=== PATIENT | female | born 1995 | race Caucasian/White ===

== ENCOUNTER 2017-01-14 08:33 | Outpatient (CLI) | payer MEDICAID ==
[~2017-01-14] VITALS: Ht 154.9 cm; Wt 66.0 kg
[~2017-01-14 08:33] MED LIST: PRENAT PO
[2017-01-14 08:48] VITALS: Ht 154.9 cm; Wt 66.0 kg
[2017-01-14 09:20] LABS: ADD UMIC YES; URINE BILIRUBIN (Dip) NEGATIVE (NEGATIVE); URINE BLOOD (Dip) 1+ (NEGATIVE); URINE COLOR LT. YELLOW (YELLOW); URINE GLUCOSE (Dip) NEGATIVE (NEGATIVE); URINE KETONES (Dip) NEGATIVE (NEGATIVE); URINE LEUKOCYTE ESTERASE (Dip) 1+ (NEGATIVE); URINE NITRITE (Dip) POSITIVE (NEGATIVE); URINE TOTAL PROTEIN (Dip) 1+ (NEGATIVE); URINE UROBILINOGEN (Dip) 0.2 E.U./dL (0.1-1.0)
[2017-01-14] MEDS ORDERED: NITR-58 PO (09:34)
--- NOTE | 2017-01-14 09:40 | HP ---
Date/Time of Note Date/Time of Note DATE: 01/14/17 TIME: 09:37 OB - History Hx of Present Free Text/Dictation OB Triage Pt is a 21yo at 22+2 presenting with 4d of painful urination with blood tinge on toilet paper after voiding. Denies blood stains on underwear. Has never felt movement yet this . Denies abdominal cramping or LOF. Sees OB in [place]. Had anatomy U/S 2wks ago which pt reports was wnl. Estimated Due Date: May 18, 2017 : 2 Para: 1 OB Admission Exam Vital Signs Vital Signs 98 112/66 77 18 Physical Exam Abdomen: WNL Heart Rate: 150's OB Assessment/Plan Other Assessment: UTI FWB reassuring Other plan: Rx Macrobid 100mg BID x7d Recommended pt f/up with primary OB in 2wks for a YI urine culture Encourage increase in PO hydration SAB precautions reviewed as well as infection precautions Pt demonstrated understanding Appropriate for d/c home NAMRATA BRUNO MD Jan 14, 2017 09:40
[2017-01-14 09:43] LABS: BACTERIA,URINE MANY
--- NOTE | 2017-01-14 09:46 | TRIAGE ---
OB Triage Datetime Report Generated by CPN: 01/14/2017 09:46 Datetime: 01/14/2017 09:50 Stage of : OB Triage Datetime: 01/14/2017 08:56 Labor Evaluation Frequency: NONE Monitor Mode: External Pattern: Normal: <= 5 Contractions in 10 Minutes Datetime: 01/14/2017 08:46 Heart Rate FHR Baseline Rate: 150 Comments: DR ROBNSON INFORMED.ORDERS RE CEIVED Datetime: 01/14/2017 08:43 Assessment Type: Triage Maternal Assessment Level of Consciousness: Fully Conscious DTR's/Clonus: DTRs 2+; No Clonus Headache: Denies Blurred Vision: No Respiratory Effort: Unlabored; Regular Rhythm; Equal Expansion Breath Sounds, Left: Clear and Equal Breath Sounds, Right: Clear and Equal Nausea/Vomiting: Denies RUQ Epigastric Pain: Denies Lower Extremities Edema: None Degree: None Upper Extremities Edema: None Degree: None Facial Edema: None Fall Risk Assessment History of Falling: (0) No Secondary Diagnosis: (0) No Ambulatory Aid: (0) Bedrest/Nurse Assist IV Therapy: (0) No Gait: (0) Normal/Bedrest/Immobile Mental Status: (0) Oriented to Own Ability Fall Score: 0 Fall Risk Score Definition: No Risk: No action required Datetime: 01/14/2017 08:41 EGA: 22.2 Datetime: 01/14/2017 08:40 Time of Arrival: 01/14/2017 08:40 Arrived By: Wheelchair Arrived From: Home Chief Complaint: PAIN ON URINATION Movement: Present Contractions: Denies/Absent Rupture of Membranes: Denies Vaginal Bleeding: None Vaginal Discharge: Denies Recent Sexual Intercouse: Denies Abdominal Trauma: Not Applicable Patient Complaints: Other Time Provider Notified: 01/14/2017 08:50 Provider Notified: DAMION Initial Plan: MATTHEW
== END 2017-01-14 09:45 | disposition home or self-care (01) ==
LOC: OBT 08:33 → L-D 08:34 → OBT 09:45
PROVIDERS: ATTEND Obstetrics & Gynecology
DX: O23.42 Unspecified infection of urinary tract in pregnancy, second trimester (principal); Z3A.22 22 weeks gestation of pregnancy
CPT/HCPCS: 81001; Z7500; 81003; G0463

== ENCOUNTER 2017-01-29 04:38 | Inpatient (IN) | payer MEDICAID ==
[~2017-01-29] VITALS: Ht 152.4 cm; Wt 67.2 kg
[~2017-01-29 04:38] MED LIST changes: +NITR-58 PO
[2017-01-29 05:04] VITALS: Ht 152.4 cm; Wt 67.2 kg
[2017-01-29 05:42] LABS: ADD UMIC YES; URINE BILIRUBIN (Dip) NEGATIVE (NEGATIVE); URINE BLOOD (Dip) 1+ (NEGATIVE); URINE COLOR LT. YELLOW (YELLOW); URINE GLUCOSE (Dip) NEGATIVE (NEGATIVE); URINE KETONES (Dip) NEGATIVE (NEGATIVE); URINE LEUKOCYTE ESTERASE (Dip) 2+ (NEGATIVE); URINE NITRITE (Dip) POSITIVE (NEGATIVE); URINE TOTAL PROTEIN (Dip) 2+ (NEGATIVE); URINE UROBILINOGEN (Dip) 0.2 E.U./dL (0.1-1.0)
[2017-01-29 05:59] LABS: BACTERIA,URINE MANY; SQUAMOUS EPITHELIAL CELL,UR MODERATE
[2017-01-29] MEDS ORDERED: SOD CHLORIDE 0.9% 1,000 ML IV ONE (06:30)
[2017-01-29] MEDS ORDERED: CEFTRIAXONE 1 GM/50 ML (PMX) 50 ML IVPB ONE (06:30)
[2017-01-29 06:45] LABS: ADD SCAN DIFF NO
[2017-01-29 06:57] LABS: BASOPHILS % 0.2 % (0.0-2.0); EOSINOPHILS # 0.2 10^3/ul (0.0-0.5); HEMOGLOBIN 11.4 g/dl (12.0-16.0); LYMPHOCYTES # 1.8 10^3/ul (0.8-2.9); LYMPHOCYTES % 19.2 % (18.0-55.0); MEAN CORPUSCULAR HEMOGLOBIN 28.4 pg (29.0-33.0); MEAN CORPUSCULAR HGB CONC 32.6 g/dl (32.0-37.0); MEAN CORPUSCULAR VOLUME 87.1 fl (72.0-104.0); MONOCYTE # 0.6 10^3/ul (0.3-0.9); MONOCYTES % 5.8 % (0.0-13.0); NEUTROPHIL # 6.9 10^3/ul (1.6-7.5); NEUTROPHILS % 72.5 % (30.0-74.0); PLATELET COUNT 279 10^3/UL (140-415); RED BLOOD COUNT 4.02 10^6/ul (4.20-5.40); RED CELL DISTRIBUTION WIDTH 13.9 % (11.5-14.5); WHITE BLOOD COUNT 9.5 10^3/ul (4.8-10.8)
--- NOTE | 2017-01-29 06:57 | HP ---
Date/Time of Note Date/Time of Note DATE: 01/29/17 TIME: 06:35 OB - History Hx of Present Free Text/Dictation Patient is at 25 weeks gestation who was treated with Macrobid x 7 days for UTI and the last dose was taken on wed 01/26/17 She presents with lower abdominal pain radiating to her back, no fever, no nausea/vomiting She reports positive movement, no leaking fluid, no vaginal bleeding, no contractions Past Family/Social History * Past Medical, Surgical, Family and Obstetric Histories reviewed from chart. OB Admission Exam Physical Exam HEENT: WNL Heart: Rhythm Normal Lungs: Clear Abdomen: Abnormal (positive CVA tenderness) Extremities: Normal Cervical Dilatation: None Accelerations: Accelerations Present Decelerations: No Decelerations Last 72 hourBlood Glucose UA positive for greater than 200 WBC OB Assessment/Plan Reason for admission: other Other Assessment: UTI with worsening pain and back pain IVF, labs, urine culture HAM Sauer IV Jan 29, 2017 06:46
[2017-01-29 07:02] LABS: ALBUMIN 3.3 g/dl (3.3-4.9)
[2017-01-29 07:03] LABS: POTASSIUM 3.7 mmol/L (3.5-5.1)
[2017-01-29 07:05] LABS: ALBUMIN/GLOBULIN RATIO 1.1; CREATININE 0.38 mg/dl (0.44-1.00); TOTAL PROTEIN 6.3 g/dl (6.1-8.1)
[2017-01-29 07:06] LABS: CALCIUM 8.1 mg/dl (8.4-10.2)
[2017-01-29] MEDS ORDERED: DEXTROSE 5%-LR 1,000 ML IV SCH (11:09)
[2017-01-29] MEDS: SOD CHLORIDE 0.45% 1,000 ML IV SCH ×2 (15:40→23:46)
[2017-01-30] MEDS ORDERED: CEFTRIAXONE 1 GM/50 ML (PMX) 50 ML IV SCH (06:00)
[2017-01-30] MEDS: SOD CHLORIDE 0.45% 1,000 ML IV SCH ×2 (07:00→09:19)
[2017-01-30] MEDS ORDERED: MULTIVIT/MIN/FOLATE/IRON/PREN TAB PO SCH (09:00)
[2017-01-30] MEDS ORDERED: FERROUS SULFATE (EC) 325 MG TAB PO SCH (09:00)
--- NOTE | 2017-01-30 15:32 | PD.PPDC ---
NETWORK OPERATIONS LEAD Discharge Instruction Condition Patient Condition: Good Diet Diet: Resume Regular Diet Activity/Restrictions Activity: Normal Activity Follow-up Follow-up with Physician: 2, Day/Days Return to clinic for NETWORK ENGINEER Instructions: Fever greater than 101 [place] STEPAN CHAPMAN MD Jan 30, 2017 15:31
--- NOTE | 2017-01-30 15:38 | DS ---
Date/Time of Note Date/Time of Note DATE: 01/30/17 TIME: 15:35 Obstetrical Discharge Record Final Diagnosis Final Diagnosis: not delivered Other Final Diagnosis Pyelonephritis. Complications Infection (Pyelonephritis.) Augmentation: No Induction: No Rupture of Membranes: No Condition on Discharge Physical Assessment Last Vitals: T= 98.3 BP 89/54 Voiding: Yes Bowel Movement: Yes Breast: Soft, non-tender Fundus: Other (Non-tender, gravid.) Abdomen and Incision: No CVAT bilaterally. Calf Tenderness: No Patient Condition: Good STEPAN CHAPMAN MD Jan 30, 2017 15:38
== END 2017-01-30 16:31 | disposition home or self-care (01) | DRG 778 ==
LOC: OBT 04:38 → L-D 04:43 → OBG 11:00 → OBT 11:00
PROVIDERS: ADMIT Obstetrics & Gynecology Gynecology; ATTEND Obstetrics & Gynecology Gynecology
DX: O60.02 Preterm labor without delivery, second trimester (principal); O23.42 Unspecified infection of urinary tract in pregnancy, second trimester; Z3A.25 25 weeks gestation of pregnancy
CPT/HCPCS: 36415; 80053; 81001; 81003; 85025; 87086; 96360; 96361; 96368; G0463; J0696; J7030; J7121

== ENCOUNTER 2017-03-01 17:55 | Inpatient (IN) | payer MEDICAID ==
[~2017-03-01] VITALS: Ht 152.4 cm; Wt 70.3 kg
[~2017-03-01 17:55] MED LIST changes: -NITR-58 PO
[2017-03-01 19:12] VITALS: Ht 152.4 cm; Wt 70.3 kg
[2017-03-01 19:14] VITALS: BP 111/70; PULSE 115; RESP 18
[2017-03-01] MEDS ORDERED: LACTATED RINGER'S 1,000 ML IV ONE (19:30)
[2017-03-01] MEDS: LACTATED RINGER'S 1,000 ML IV SCH (19:45)
[2017-03-01 19:49] LABS: ADD UMIC YES; URINE BILIRUBIN (Dip) NEGATIVE (NEGATIVE); URINE BLOOD (Dip) 2+ (NEGATIVE); URINE COLOR LT. YELLOW (YELLOW); URINE GLUCOSE (Dip) NEGATIVE (NEGATIVE); URINE KETONES (Dip) NEGATIVE (NEGATIVE); URINE LEUKOCYTE ESTERASE (Dip) TRACE (NEGATIVE); URINE NITRITE (Dip) POSITIVE (NEGATIVE); URINE TOTAL PROTEIN (Dip) NEGATIVE (NEGATIVE); URINE UROBILINOGEN (Dip) 2.0 E.U./dL (0.1-1.0)
[2017-03-01] MEDS ORDERED: ACETAMINOPHEN 500 MG TAB PO STA (19:56)
[2017-03-01] MEDS ORDERED: ACETAMINOPHEN 650 MG SUPP PR PRN (20:00)
[2017-03-01 20:04] LABS: ADD SCAN DIFF NO
--- NOTE | 2017-03-01 20:10 | RADRPT ---
PROCEDURE: OB ultrasound for biophysical profile CLINICAL INDICATION: Biophysical profile. . TECHNIQUE: Multiple sonographic images of the pelvis were obtained. Transabdominal view of the gr avid uterus are available for review. COMPARISON: OB ultrasound 07/31/2015 FINDINGS: Single intrauterine gestation. Presentation: Cephalic. breathing movement = 2/2 tone = 2/2 motion = 2/2 ELIZABETH = 2/2 Longest vertical fluid pocket 5.9 cm. heart rate: 161 beats per minute IMPRESSION: Single intrauterine gestation. Biophysical profile 06/21 RPTAT: AADD .Davin Zarco MD, MD Date Time Electronically viewed and signed by .Davin Zarco MD, MD on 03/01/2017 20:10 .B/
[2017-03-01 20:25] LABS: BASOPHILS % 0.1 % (0.0-2.0); EOSINOPHILS # 0.1 10^3/ul (0.0-0.5); EOSINOPHILS % 1.1 % (0.0-7.0); HEMATOCRIT 35.9 % (37.0-47.0); HEMOGLOBIN 11.2 g/dl (12.0-16.0); LYMPHOCYTES % 11.6 % (18.0-55.0); MEAN CORPUSCULAR HEMOGLOBIN 27.5 pg (29.0-33.0); MEAN CORPUSCULAR HGB CONC 31.2 g/dl (32.0-37.0); MEAN CORPUSCULAR VOLUME 88.2 fl (72.0-104.0); MEAN PLATELET VOLUME 10.3 fl (7.4-10.4); MONOCYTE # 0.6 10^3/ul (0.3-0.9); MONOCYTES % 7.2 % (0.0-13.0); NEUTROPHIL # 6.8 10^3/ul (1.6-7.5); NEUTROPHILS % 79.6 % (30.0-74.0); PLATELET COUNT 271 10^3/UL (140-415); RED BLOOD COUNT 4.07 10^6/ul (4.20-5.40); WHITE BLOOD COUNT 8.6 10^3/ul (4.8-10.8)
[2017-03-01] MEDS: SOD CHLORIDE 0.9% 1,000 ML IV PRN (20:56)
[2017-03-01] MEDS: CEFTRIAXONE 1 GM/50 ML (PMX) 50 ML IVPB SCH (21:01)
[2017-03-01 21:08] LABS: BACTERIA,URINE MANY; SQUAMOUS EPITHELIAL CELL,UR MODERATE
--- NOTE | 2017-03-01 21:31 | TRIAGE ---
OB Triage Datetime Report Generated by CPN: 03/01/2017 21:30 Datetime: 03/01/2017 21:12 Temperature Route: Oral Datetime: 03/01/2017 20:17 Monitor Mode: Palpation Datetime: 03/01/2017 20:07 Monitor Mode: Palpation Datetime: 03/01/2017 19:35 Time of Arrival: 03/01/2017 17:56 EGA: 28.6 Arrived By: Wheelchair Arrived From: Emergency Dept Chief Complaint: Pyelonephritis re-evaluation Movement: Present Contractions: Denies/Absent Rupture of Membranes: Denies Vaginal Bleeding: None Vaginal Discharge: Denies Recent Sexual Intercouse: Denies Abdominal Trauma: Not Applicable Patient Complaints: Back Pain; Other Time Provider Notified: 03/01/2017 18:22 Provider Notified: [facility] Initial Plan: NST, BPP/ELIZABETH, Renal US, UA + urine culture, IV hydration, CBC Datetime: 03/01/2017 19:32 Time Provider Notified: 03/01/2017 19:32 Datetime: 03/01/2017 19:13 Stage of : OB Triage Assessment Type: Triage Maternal Assessment Level of Consciousness: Fully Conscious DTR's/Clonus: DTRs 2+; No Clonus Headache: Denies Blurred Vision: No Respiratory Effort: Unlabored; Regular Rhythm; Equal Expansion Breath Sounds, Left: Clear and Equal Breath Sounds, Right: Clear and Equal Nausea/Vomiting: Denies RUQ Epigastric Pain: Denies Lower Extremities Edema: None Degree: None Upper Extremities Edema: None Degree: None Facial Edema: None Temperature Route: Oral Fall Risk Assessment History of Falling: (0) No Secondary Diagnosis: (0) No Ambulatory Aid: (0) Bedrest/Nurse Assist IV Therapy: (0) No Gait: (0) Normal/Bedrest/Immobile Mental Status: (0) Oriented to Own Ability Fall Score: 0 Fall Risk Score Definition: No Risk: No action required Labor Evaluation Frequency: IRREGULAR Monitor Mode: External Resting Tone Amo: Relaxed Heart Rate FHR Baseline Rate: 165 Monitor Mode: External US FHR Baseline Changes: Tachycardia Variability: Moderate 6-25 bpm Pain Assessment Pain Scale: 5 Pain Presence: Intermittent Pain Type: Cramping Pain Location: Right Flank; Left Flank Pain Relief Measures: Comfort Measures Datetime: 03/01/2017 18:30 Monitor Mode: External Resting Tone Amo: Relaxed Heart Rate FHR Baseline Rate: 165 Monitor Mode: External US FHR Baseline Changes: No Baseline Change Variability: Moderate 6-25 bpm Accelerations: 15X15 Decelerations: None Category: Category I Pain Assessment Pain Scale: 5 Pain Presence: Intermittent Pain Type: Ache Pain Location: Back Pain Goal: 0 Pain Relief Measures: Comfort Measures Datetime: 03/01/2017 18:11 Stage of : OB Triage Datetime: 01/30/2017 16:00 Temperature Route: Oral Monitor Mode: External Pain Assessment Pain Scale: 0 Pain Presence: None/Denies Pain Goal: 0 Datetime: 01/30/2017 14:00 Pain Assessment Pain Scale: 0 Pain Presence: None/Denies Pain Goal: 0 Datetime: 01/30/2017 13:00 Pain Assessment Pain Scale: 0 Pain Goal: 0 Pain Assessment Comments: PT HAVING LUNCH WHILE VISITING WITH HER Datetime: 01/30/2017 12:00 Pain Assessment Pain Scale: 0 Pain Goal: 0 Datetime: 01/30/2017 10:00 Labor Evaluation Frequency: NONE Monitor Mode: External Pattern: Normal: <= 5 Contractions in 10 Minutes Resting Tone Amo: Relaxed Datetime: 01/30/2017 09:00 Labor Evaluation Frequency: NONE Monitor Mode: External Pattern: Normal: <= 5 Contractions in 10 Minutes Resting Tone Amo: Relaxed Heart Rate FHR Baseline Rate: 140 Monitor Mode: External US FHR Baseline Changes: No Baseline Change Variability: Moderate 6-25 bpm Accelerations: 15X15 Decelerations: None Category: Category I Datetime: 01/30/2017 07:46 Assessment Type: Ongoing Assessment Maternal Assessment Level of Consciousness: Fully Conscious DTR's/Clonus: DTRs 2+; No Clonus Headache: Denies Blurred Vision: No Respiratory Effort: Unlabored; Regular Rhythm; Equal Expansion Breath Sounds, Left: Clear and Equal Breath Sounds, Right: Clear and Equal Nausea/Vomiting: Denies RUQ Epigastric Pain: Denies Lower Extremities Edema: None Degree: None Upper Extremities Edema: None Degree: None Facial Edema: None Temperature Route: Oral Fall Risk Assessment History of Falling: (0) No Secondary Diagnosis: (0) No Ambulatory Aid: (0) Bedrest/Nurse Assist Gait: (0) Normal/Bedrest/Immobile Mental Status: (0) Oriented to Own Ability Labor Evaluation Frequency: NONE Monitor Mode: External Pattern: Normal: <= 5 Contractions in 10 Minutes Resting Tone Amo: Relaxed Heart Rate FHR Baseline Rate: 140 Monitor Mode: External US FHR Baseline Changes: No Baseline Change Variability: Moderate 6-25 bpm Accelerations: 15X15 Decelerations: None Category: Category I Datetime: 01/30/2017 05:46 Stage of : Antepartum Temperature Route: Oral Datetime: 01/29/2017 21:23 Labor Evaluation Frequency: none Monitor Mode: External Resting Tone Amo: Relaxed Heart Rate FHR Baseline Rate: 145 Monitor Mode: External US FHR Baseline Changes: No Baseline Change Variability: Moderate 6-25 bpm Accelerations: 10X10 Decelerations: None Comments: FHTs appropriate for GA. Pain Assessment Pain Scale: 0 Pain Presence: None/Denies Datetime: 01/29/2017 21:00 Labor Evaluation Frequency: none Monitor Mode: External Resting Tone Amo: Relaxed Heart Rate FHR Baseline Rate: 145 Monitor Mode: External US FHR Baseline Changes: No Baseline Change Variability: Moderate 6-25 bpm Accelerations: 10X10 Decelerations: None Pain Assessment Pain Scale: 0 Pain Presence: None/Denies Datetime: 01/29/2017 20:39 Assessment Type: Ongoing Assessment Maternal Assessment Level of Consciousness: Fully Conscious DTR's/Clonus: DTRs 2+; No Clonus Headache: Denies Blurred Vision: No Respiratory Effort: Unlabored; Regular Rhythm; Equal Expansion Breath Sounds, Left: Clear and Equal Breath Sounds, Right: Clear and Equal Nausea/Vomiting: Denies RUQ Epigastric Pain: Denies Lower Extremities Edema: None Degree: None Upper Extremities Edema: None Degree: None Facial Edema: None Fall Risk Assessment History of Falling: (0) No Secondary Diagnosis: (0) No Ambulatory Aid: (0) Bedrest/Nurse Assist IV Therapy: (20) Yes Gait: (0) Normal/Bedrest/Immobile Mental Status: (0) Oriented to Own Ability Fall Score: 20 Fall Risk Score Definition: No Risk: No action required Datetime: 01/29/2017 20:37 Comments: EFM on for NST Datetime: 01/29/2017 20:36 Stage of : Antepartum Temperature Route: Oral Datetime: 01/29/2017 16:59 Stage of : Antepartum Temperature Route: Oral Pain Presence: None/Denies Datetime: 01/29/2017 13:58 Labor Evaluation Frequency: 0 Monitor Mode: External Resting Tone Amo: Relaxed Heart Rate FHR Baseline Rate: 150 Monitor Mode: External US FHR Baseline Changes: No Baseline Change Variability: Minimal - Undetectable to <=5 bpm (Annotations: GESTATIONAL AGE 24 WKS) Datetime: 01/29/2017 11:56 Assessment Type: Admission Assessment Maternal Assessment Level of Consciousness: Fully Conscious DTR's/Clonus: DTRs 2+; No Clonus Headache: Denies Blurred Vision: No Respiratory Effort: Unlabored; Regular Rhythm; Equal Expansion Breath Sounds, Left: Clear and Equal Breath Sounds, Right: Clear and Equal Nausea/Vomiting: Denies RUQ Epigastric Pain: Denies Lower Extremities Edema: None Degree: None Upper Extremities Edema: None Facial Edema: None Fall Risk Assessment History of Falling: (0) No Secondary Diagnosis: (0) No Ambulatory Aid: (0) Bedrest/Nurse Assist IV Therapy: (20) Yes Gait: (0) Normal/Bedrest/Immobile Mental Status: (0) Oriented to Own Ability Fall Score: 20 Fall Risk Score Definition: No Risk: No action required Datetime: 01/29/2017 11:54 Stage of : Antepartum Temperature Route: Oral Pain Presence: Chronic Pain Type: Ache Pain Location: Back Pain Goal: 1 Pain Relief Measures: Comfort Measures Datetime: 01/29/2017 09:51 Labor Evaluation Frequency: NONE Monitor Mode: External Duration (sec)2399: NONE Pattern: Normal: <= 5 Contractions in 10 Minutes Heart Rate FHR Baseline Rate: 150 Monitor Mode: External US FHR Baseline Changes: No Baseline Change Variability: Moderate 6-25 bpm Datetime: 01/29/2017 09:22 Comments: EXTERNAL MONITOR REPLACED Datetime: 01/29/2017 09:16 Monitor Mode: External US Datetime: 01/29/2017 09:10 Monitor Mode: External US Datetime: 01/29/2017 09:00 Monitor Mode: External US Datetime: 01/29/2017 08:11 Monitor Mode: Palpation Resting Tone Amo: Relaxed Contraction Comments: PT. COMPLAINING OF PAIN AT THIS MOMENT, UTERUS RELAXED, PAIN RADIATING AT BL ADDER Datetime: 01/29/2017 08:04 Monitor Mode: External US Datetime: 01/29/2017 07:00 Labor Evaluation Frequency: X1 Duration (sec)2399: 40 Pattern: Normal: <= 5 Contractions in 10 Minutes Datetime: 01/29/2017 06:00 Labor Evaluation Frequency: NONE Duration (sec)2399: NONE Pattern: Normal: <= 5 Contractions in 10 Minutes Monitor Mode: External US FHR Baseline Changes: No Baseline Change Datetime: 01/29/2017 05:38 Monitor Mode: Palpation Resting Tone Amo: Relaxed Monitor Mode: External US Datetime: 01/29/2017 05:35 Monitor Mode: External US Datetime: 01/29/2017 05:24 Monitor Mode: External US Comments: FHT AUDIBLE, CONTINUOUS MONITORING WITH EXCESSIVE MOVEMENT AND DIFFICULTY MONITOR ING D/T GA Datetime: 01/29/2017 04:59 Monitor Mode: Palpation Resting Tone Amo: Relaxed Datetime: 01/29/2017 04:56 Monitor Mode: External US Datetime: 01/29/2017 04:49 Monitor Mode: External US Datetime: 01/29/2017 04:47 Assessment Type: Triage Maternal Assessment Level of Consciousness: Fully Conscious Headache: Denies Blurred Vision: No Respiratory Effort: Unlabored; Regular Rhythm; Equal Expansion Nausea/Vomiting: Denies RUQ Epigastric Pain: Denies Lower Extremities Edema: None Upper Extremities Edema: None Facial Edema: None Fall Risk Assessment History of Falling: (0) No Secondary Diagnosis: (0) No Ambulatory Aid: (0) Bedrest/Nurse Assist IV Therapy: (0) No Gait: (0) Normal/Bedrest/Immobile Mental Status: (0) Oriented to Own Ability Fall Score: 0 Fall Risk Score Definition: No Risk: No action required Datetime: 01/29/2017 04:46 Time of Arrival: 01/29/2017 04:30 EGA: 24.3 Arrived By: Wheelchair Arrived From: Home Chief Complaint: UC'S WITH PAINFUL URINATION Movement: Present Contractions: Regular Time Contractions Began: 01/28/2017 22:00 Contractions: 2-3 Rupture of Membranes: Denies Vaginal Bleeding: None Vaginal Discharge: Denies Recent Sexual Intercouse: Denies Abdominal Trauma: Not Applicable Patient Complaints: Contractions; Urinary Frequency; Pain on Urination Time Provider Notified: 01/29/2017 06:05 Provider Notified: DUSTY Initial Plan: EFM,UA,CALL OB Datetime: 01/29/2017 04:45 Monitor Mode: Palpation Resting Tone Amo: Relaxed Datetime: 01/14/2017 08:43 Fall Score: 0 Fall Risk Score Definition: No Risk: No action required Datetime: 01/14/2017 08:41 EGA: 22.2
--- NOTE | 2017-03-01 23:53 | HP ---
Date/Time of Note Date/Time of Note DATE: 03/01/17 TIME: 23:25 OB - History Hx of Present Free Text/Dictation 21y.o primigravida at 28w6d presented to triage with c/o back pain and flank pain and febrile episodes recently dxed to have uti treated with macrobid u/a positive for leuko estrase pos blood pos Chief Complaint: flank pain fever Estimated Due Date: Jun 10, 2017 : 1 Para: 0 Spontaneous : 0 Therapeutic : 0 Care: Limited Care Ultrasounds: Normal mid trimester US Obstetrical Complications: None Medical Complications: Genitourinary Past Family/Social History * Past Medical, Surgical, Family and Obstetric Histories reviewed from chart. Blood Type: Unknown Rubella: unknown RPR/VDRL: Unknown GBS Status: Unknown HBsAG: Unknown OB Admission Exam Vital Signs Vital Signs Vital Signs Date Time Temp Pulse Resp B/P Pulse Ox O2 Delivery O2 Flow Rate FiO2 03/01/17 19:14 100.8 115 18 111/70 Room Air Physical Exam HEENT: WNL Heart: Rhythm Normal Lungs: Clear, Equal Abdomen: WNL Extremities: Normal Reflexes: Normal Cervical Dilatation: other Effacement: Other Station: Other Membranes: Intact Amniotic Fluid: Unevaluable Last 72 hours Lab Results CBC & BMP 03/01/17 19:25 OB Assessment/Plan Other Assessment: iup 28w2d acute pyelonephritis Other plan: iv fluid with MAGI Aponte MD Mar 01, 2017 23:41
--- NOTE | 2017-03-02 00:12 | RADRPT ---
PROCEDURE: Renal US. CLINICAL INDICATION: Pyelonephritis TECHNIQUE: Multiple sonographic images of the kidneys were obtained. The images were reviewed on a PACS workstation. COMPARISON: No prior studies are available for comparison. FINDINGS: The kidneys are well visualized. The right kidney measures 10.7 cm. The left kidney measures 11.1 cm . There are no focal areas of abnormal echogenicity. There is bilateral minimal hydronephrosis. No r enal mass or calculus is seen bilaterally. The bladder is nearly empty. IMPRESSION: Bilateral minimal hydronephrosis. RPTAT: HJES .Rusty Pantoja MD, Date Time Electronically viewed and signed by .Rusty Pantoja MD, on 03/02/2017 00:12 .S/
[2017-03-02] MEDS: ACETAMINOPHEN 500 MG TAB PO PRN ×3 (02:39→19:21)
[2017-03-02] MEDS: LACTATED RINGER'S 1,000 ML IV SCH ×2 (03:45→11:45)
[2017-03-02] MEDS: SOD CHLORIDE 0.9% 1,000 ML IV PRN ×4 (05:08→14:15)
--- NOTE | 2017-03-02 10:42 | CONS ---
Date/Time of Note Date/Time of Note DATE: 03/02/17 TIME: 10:33 Consultation Date/Type/Reason Admit Date/Time Mar 01, 2017 at 19:45 Type of Consultation: OB triage consult Reason for Consultation This patient is a 21 years old 1 para 0 with estimated date of confinement of June 10 which makes her 28 weeks and 6 days she is being followed in Dr. Kyler Hager's clinic She came to OB triage clinic complaining of back pain and flank pain since yesterday On general examination she is a well-developed well-nourished lady admitted to her ear nose throat appears to be normal chest was clear her vital signs indicating most likely inflammatory process her blood pressure 111/70 pulse rate 115 respiration 18 temperature 100.8 on exam as I mentioned she did have a CVA tenderness on both side she was prescribed Macrobid which ended last week with possibility of pyelonephritis the ultrasound study was ordered Report on renal ultrasound was the right kidney measured 10.7 cm the left kidney 11.1 there was bilateral minimal hydronephrosis no calculi OB ultrasound study single intrauterine gestation in vertex presentation biophysical profile 8 out of 8 the longest vertical fluid pocket was 5.9 cm heart rate was reported 161 Laboratory Tests Test 03/01/17 18:00 03/01/17 19:25 Urine Color LT. YELLOW Urine Clarity CLEAR Urine pH 6.5 Urine Specific [place] 1.015 Urine Ketones NEGATIVE Urine Nitrite POSITIVE Urine Bilirubin NEGATIVE Urine Urobilinogen 2.0 E.U./dL Urine Leukocyte Esterase TRACE Urine Microscopic RBC 5-10/HPF Urine Microscopic WBC 5-10/HPF Urine Squamous Epithelial Cells MODERATE Urine Bacteria MANY Urine Hemoglobin 2+ Urine Glucose NEGATIVE% Urine Total Protein NEGATIVE White Blood Count 8.610^3/ul Red Blood Count 4.0710^6/ul Hemoglobin 11.2g/dl Hematocrit 35.9% Mean Corpuscular Volume 88.2fl Mean Corpuscular Hemoglobin 27.5pg Mean Corpuscular Hemoglobin Concent 31.2g/dl Red Cell Distribution Width 14.0% Platelet Count 50099^3/UL Mean Platelet Volume 10.3fl Neutrophils % 79.6% Lymphocytes % 11.6% Monocytes % 7.2% Eosinophils % 1.1% Basophils % 0.1% Nucleated Red Blood Cells % 0.0/100WBC Neutrophils # 6.810^3/ul Lymphocytes # 1.010^3/ul Monocytes # 0.610^3/ul Eosinophils # 0.110^3/ul Basophils # 0.010^3/ul Nucleated Red Blood Cells # 0.010^3/ul Current Medications Medications (Trade) Dose Ordered Sig/Osvaldo Route PRN Reason Start Time Stop Time Status Last Admin Dose Admin Lactated Ringer's 1,000 ml @ 1,000 mls/hr Q1H ONCE IV 03/01/17 19:30 03/01/17 20:29 DC 03/01/17 19:30 1,000 MLS/HR Lactated Ringer's (Lr) 1,000 ml @ 125 mls/hr Q8H IV 03/01/17 19:45 Prenat Multivit/ [employer]/Iron/Folic Ac ( S) 1 tab DAILY PO 03/02/17 09:00 Acetaminophen 1000 mg 1,000 mg Q6H PRN DE PAIN AND OR ELEVATED TEMP 03/01/17 20:00 03/01/17 20:00 DC Ceftriaxone Sodium 50 ml @ 100 mls/hr Q24H IVPB 03/01/17 21:00 03/01/17 21:01 100 MLS/HR Sodium Chloride (NS) 1,000 ml @ 125 mls/hr Q8H PRN IV NOTE 03/01/17 21:00 03/02/17 05:09 125 MLS/HR Acetaminophen (Tylenol Tab) 1,000 mg ONCE STAT PO 03/01/17 19:56 03/01/17 20:00 DC 03/01/17 20:08 1,000 MG Acetaminophen (Tylenol Tab) 1,000 mg Q6H PRN PO PAIN AND OR ELEVATED TEMP 03/01/17 20:30 03/02/17 02:39 1,000 MG Constitutional: febrile (Fever of 100.8), No chills, No diaphoresis, No disoriented, No improved, No no complaints, No other, No poor po, No requiring IVF, No requiring O2 Eyes: No discharge, No no complaints, No other, No pain, No redness, No visual change ENT: No bleeding, No congestion, No discharge, No dysphagia, No no complaints, No other, No pain, No sore throat Respiratory: No cough, No no complaints, No other, No pain, No pleuritic pain, No shortness of breath, No sputum, No wheezing Cardiovascular: No chest pain, No edema, No lightheadedness, No no complaints, No orthopenea, No other, No palpitations, No paroxysmal nocturnal dyspnea Gastrointestinal: other, No blood, No constipation, No decreased appetite, No diarrhea, No flatus, No nausea, No no complaints, No pain, No passing stool, No vomiting Genitourinary: other (Mild costovertebral angle tenderness), No bleeding, No discharge, No dysuria, No flank pain, No hematuria, No no complaints Musculoskeletal: No back pain, No bone/joint pain, No neck pain, No no complaints, No other, No restricted range of motion, No swelling Skin: No bruising, No erythema, No laceration, No no complaints, No other, No pruritis, No rash, No skin lesions Neurologic: No confusion, No dizziness, No focal-weakness, No headache, No no complaints, No other, No seizure, No syncope Endocrine: No dry skin, No no complaints, No other, No polydypsia, No polyuria , No temp intolerance Psychological: No anxiety, No confusion, No depression, No nl mood/affect, No no complaints, No other, No suicidal Additional Comments Due to evidence of a pyelonephritis she will be admitted in the hospital Social History Smoking Status: Never smoker Exam/Review of Systems Vital Signs Vitals Vital Signs Date Time Temp Pulse Resp B/P Pulse Ox O2 Delivery O2 Flow Rate FiO2 03/01/17 19:14 100.8 115 18 111/70 Room Air Intake and Output 03/01/17 03/01/17 03/02/17 15:00 23:00 07:00 Intake Total 300 ml 1650 ml Output Total 800 ml Balance 300 ml 850 ml Results Result Diagram: 03/01/171924 Results 24 hrs Laboratory Tests Test 03/01/17 18:00 03/01/17 19:25 Urine Color LT. YELLOW Urine Clarity CLEAR Urine pH 6.5 Urine Specific [place] 1.015 Urine Ketones NEGATIVE Urine Nitrite POSITIVE H Urine Bilirubin NEGATIVE Urine Urobilinogen 2.0 E.U./dL H Urine Leukocyte Esterase TRACE H Urine Microscopic RBC 5-10 Urine Microscopic WBC 5-10 Urine Squamous Epithelial Cells MODERATE Urine Bacteria MANY Urine Hemoglobin 2+ H Urine Glucose NEGATIVE Urine Total Protein NEGATIVE White Blood Count 8.6 Red Blood Count 4.07 L Hemoglobin 11.2 L Hematocrit 35.9 L Mean Corpuscular Volume 88.2 Mean Corpuscular Hemoglobin 27.5 L Mean Corpuscular Hemoglobin Concent 31.2 L Red Cell Distribution Width 14.0 Platelet Count 271 Mean Platelet Volume 10.3 Neutrophils % 79.6 H Lymphocytes % 11.6 L Monocytes % 7.2 Eosinophils % 1.1 Basophils % 0.1 Nucleated Red Blood Cells % 0.0 Neutrophils # 6.8 Lymphocytes # 1.0 Monocytes # 0.6 Eosinophils # 0.1 Basophils # 0.0 Nucleated Red Blood Cells # 0.0 Medications Medications Current Medications Lactated Ringer's (Lr) 1,000 ml @ 125 mls/hr Q8H IV ; Start 03/01/17 at 19:45 Prenat Multivit/ [place]/Iron/Folic Ac 1 tab 1 tab DAILY PO ; Start 03/02/17 at 09 :00 Ceftriaxone Sodium 50 ml @ 100 mls/hr Q24H IVPB Last administered on 21:01; Admin Dose 100 MLS/HR; Start 03/01/17 at 21:00 Sodium Chloride (NS) 1,000 ml @ 125 mls/hr Q8H PRN IV NOTE Last administered on 03/02/17 05:09; Admin Dose 125 MLS/HR; Start 03/01/17 at 21:00 Acetaminophen (Tylenol Tab) 1,000 mg Q6H PRN PO PAIN AND OR ELEVATED TEMP Last administered on 03/02/17 02:39; Admin Dose 1,000 MG; Start 03/01/17 at 20:30 GUY JANE MD Mar 02, 2017 10:42
[2017-03-02 11:29] LABS: CREATININE 0.42 mg/dl (0.44-1.00); POTASSIUM 3.3 mmol/L (3.5-5.1)
[2017-03-02] MEDS: MULTIVIT/MIN/FOLATE/IRON/PREN TAB PO SCH (12:14)
[2017-03-02] MEDS ORDERED: POTASSIUM CHLORIDE (SR) 20 MEQ TAB PO STA (14:48)
[2017-03-02] MEDS: SOD CHLORIDE 0.9% 1,000 ML IV SCH (20:41)
[2017-03-02] MEDS: CEFTRIAXONE 1 GM/50 ML (PMX) 50 ML IVPB SCH (20:43)
[2017-03-02] MEDS ORDERED: SOD CHLORIDE 0.9% 1,000 ML IV SCH (21:00)
[2017-03-02] MEDS ORDERED: HYDROCODONE/APAP (7.5/325) TAB PO PRN (21:00)
[2017-03-03] MEDS: SOD CHLORIDE 0.9% 1,000 ML IV SCH ×4 (01:46→22:05)
[2017-03-03] MEDS: ACETAMINOPHEN 500 MG TAB PO PRN ×2 (05:24→17:22)
[2017-03-03] MEDS: MULTIVIT/MIN/FOLATE/IRON/PREN TAB PO SCH (09:02)
[2017-03-03] MEDS: POTASSIUM CHLORIDE (SR) 20 MEQ TAB PO SCH (09:02)
--- NOTE | 2017-03-03 12:05 | PN ---
Date/Time of Note Date/Time of Note DATE: 03/03/17 TIME: 12:00 OB Subjective Subjective Subjective March 03, 2070 Hospital round This patient is a 21 years old 3 para 1 with EDC of January 11, 2070 which makes her 25 weeks and 6 days . she came with elevated blood pressure and costovertebral angle tenderness Her treatment started with Rocephin 1 g every day. Her temperature was 100.1 last night ,however today she is afebrile . Her urine culture was basically no growth ,but was positive for nitrate and leukocyte Her blood culture was reported positive for gram-positive cocci . today on examination except for some degree of tenderness on the right costovertebral angle does not have any other complaint no abdominal pain or pressure sensation this morning. Plan ; we will continue the antibiotic treatment and repeat the urine culture Current Medications Medications (Trade) Dose Ordered Sig/Osvaldo Route PRN Reason Start Time Stop Time Status Last Admin Dose Admin Lactated Ringer's 1,000 ml @ 1,000 mls/hr Q1H ONCE IV 03/01/17 19:30 03/01/17 20:29 DC 03/01/17 19:30 Lactated Ringer's (Lr) 1,000 ml @ 125 mls/hr Q8H IV 03/01/17 19:45 03/02/17 20:36 DC Prenat Multivit/ [place]/Iron/Folic Ac ( S) 1 tab DAILY PO 03/02/17 09:00 03/03/17 09:02 Acetaminophen 1000 mg 1,000 mg Q6H PRN IA PAIN AND OR ELEVATED TEMP 03/01/17 20:00 03/01/17 20:00 DC Ceftriaxone Sodium 50 ml @ 100 mls/hr Q24H IVPB 03/01/17 21:00 03/02/17 20:43 Sodium Chloride (NS) 1,000 ml @ 125 mls/hr Q8H PRN IV NOTE 03/01/17 21:00 03/02/17 20:37 DC 03/02/17 14:15 Acetaminophen (Tylenol Tab) 1,000 mg ONCE STAT PO 03/01/17 19:56 03/01/17 20:00 DC 03/01/17 20:08 Acetaminophen (Tylenol Tab) 1,000 mg Q6H PRN PO PAIN AND OR ELEVATED TEMP 03/01/17 20:30 03/03/17 05:24 Potassium Chloride (Klor-Con 20) 40 meq ONCE STAT PO 03/02/17 14:48 03/02/17 14:51 DC 03/02/17 15:09 Potassium Chloride 20 meq 20 meq DAILY PO 03/03/17 09:00 03/03/17 09:02 Sodium Chloride 1,000 ml @ 200 mls/hr Q5H IV 03/02/17 21:00 03/02/17 21:00 DC Sodium Chloride (NS) 1,000 ml @ 150 mls/hr Q6H40M IV 03/02/17 20:35 03/03/17 07:26 Acetaminophen/ Hydrocodone Bitart ([place] (7.5-325)) 1 tab Q6H PRN PO MODERATE PAIN LEVEL 4-6 03/02/17 21:00 GUY JANE MD Mar 03, 2017 12:04
[2017-03-03] MEDS: CEFTRIAXONE 1 GM/50 ML (PMX) 50 ML IVPB SCH (21:07)
[2017-03-04] MEDS: ACETAMINOPHEN 500 MG TAB PO PRN (01:35)
[2017-03-04] MEDS: SOD CHLORIDE 0.9% 1,000 ML IV SCH ×3 (04:36→18:44)
[2017-03-04] MEDS: MULTIVIT/MIN/FOLATE/IRON/PREN TAB PO SCH (08:36)
[2017-03-04] MEDS: POTASSIUM CHLORIDE (SR) 20 MEQ TAB PO SCH (08:36)
--- NOTE | 2017-03-04 12:38 | QN ---
Documentation Comment Pt. to be seen by Dr. Coronel no other problems CPM RODRICK ENGLE MD Mar 04, 2017 12:38
--- NOTE | 2017-03-04 13:46 | PN ---
Date/Time of Note Date/Time of Note DATE: 03/04/17 TIME: 13:44 OB Subjective Subjective Subjective Patient denies any fever or back pain. OB Objective Objective Objective AFVSS Gen: NAD Abd: gravid, NT Back: no CVAT FHT: reassuring [place]: no UCs OB Assessment/Plan Other Assessment: at 26 weeks admitted for pyelonephritis. Other plan: Continue IV antibiotics. F/u in final urine culture. HODA MCLAUGHLIN Mar 04, 2017 13:46
[2017-03-04] MEDS: CEFTRIAXONE 1 GM/50 ML (PMX) 50 ML IVPB SCH (21:29)
[2017-03-05] MEDS: SOD CHLORIDE 0.9% 1,000 ML IV SCH ×2 (02:54→09:06)
[2017-03-05] MEDS: POTASSIUM CHLORIDE (SR) 20 MEQ TAB PO SCH (09:05)
[2017-03-05] MEDS: MULTIVIT/MIN/FOLATE/IRON/PREN TAB PO SCH (09:05)
--- NOTE | 2017-03-05 10:54 | PN ---
Date/Time of Note Date/Time of Note DATE: 03/05/17 TIME: 10:51 OB Subjective Subjective Subjective Patient is 2 para 1 at 28+ weeks of gestation currently being treated for pyelonephritis on Rocephin IV OB Objective Objective Objective Patient stable and afebrile today Urine culture on March 01 tested positive for E. coli HEENT: WNL Heart: Rhythm Normal Lungs: Clear Abdomen: WNL Extremities: Normal OB Assessment/Plan Other Assessment: 28+ weeks of gestation with pyelonephritis Other plan: Repeat CBC today Consider discharge home on p.o. Macrobid for 2 weeks Follow-up with Dr. Hager in 2-3 days HAM MONTANO MD Mar 05, 2017 10:54
[2017-03-05 11:45] LABS: ADD SCAN DIFF NO
[2017-03-05 11:53] LABS: BASOPHILS % 0.2 % (0.0-2.0); EOSINOPHILS # 0.1 10^3/ul (0.0-0.5); EOSINOPHILS % 2.1 % (0.0-7.0); HEMOGLOBIN 9.1 g/dl (12.0-16.0); LYMPHOCYTES # 1.1 10^3/ul (0.8-2.9); LYMPHOCYTES % 21.2 % (18.0-55.0); MEAN CORPUSCULAR HEMOGLOBIN 27.3 pg (29.0-33.0); MEAN CORPUSCULAR HGB CONC 31.4 g/dl (32.0-37.0); MEAN CORPUSCULAR VOLUME 87.1 fl (72.0-104.0); MEAN PLATELET VOLUME 9.6 fl (7.4-10.4); MONOCYTE # 0.4 10^3/ul (0.3-0.9); MONOCYTES % 8.3 % (0.0-13.0); NEUTROPHIL # 3.5 10^3/ul (1.6-7.5); PLATELET COUNT 223 10^3/UL (140-415); RED BLOOD COUNT 3.33 10^6/ul (4.20-5.40); RED CELL DISTRIBUTION WIDTH 14.4 % (11.5-14.5); WHITE BLOOD COUNT 5.2 10^3/ul (4.8-10.8)
--- NOTE | 2017-03-05 12:23 | PDOCDIS ---
Discharge Instructions DIAGNOSIS Discharge Diagnosis: Pyelonephritis CONDITION Patient Condition: Good HOME CARE INSTRUCTIONS: Diet Instructions: Regular ACTIVITY: Activity Restrictions: No Restrictions Bathing Restrictions: Shower FOLLOW UP/APPOINTMENTS Appointments Follow-up with Dr. Hager in 2-3 days OTHER ORDERS: Other Orders: Prescription for Macrobid 100 mg p.o. to be taken twice a day for 2 weeks SCHOOL/WORK RELEASE May return to School/Work with: No Restrictions HAM MONTANO MD Mar 05, 2017 12:23
[2017-03-05] MEDS ORDERED: NITR-58 PO (12:25)
--- NOTE | 2017-03-05 12:35 | DS ---
Date/Time of Note Date/Time of Note DATE: 03/05/17 TIME: 12:31 Obstetrical Discharge Record Final Diagnosis Final Diagnosis: not delivered Other Final Diagnosis 28 weeks of gestation with pyelonephritis Urine culture tested positive for E. coli Patient has been treated with IV Rocephin She is currently stable and afebrile and doing well CBC today within normal limits Patient to be discharged home today Prescription for Macrobid 100 mg p.o. twice daily was given to be taken for 2 weeks Patient should follow-up with Dr. Hager in 2-3 days Condition on Discharge Physical Assessment Last Vitals: Afebrile, VSS CBC within normal limits Voiding: Yes Patient Condition: Good HAM MONTANO MD Mar 05, 2017 12:35
== END 2017-03-05 13:00 | disposition home or self-care (01) | DRG 781 ==
LOC: OBT 17:55 → L-D 17:55 → OBG 19:45 → OBT 19:45
PROVIDERS: ADMIT Obstetrics & Gynecology; ATTEND Obstetrics & Gynecology
DX: O23.03 Infections of kidney in pregnancy, third trimester (principal); B96.20 Unspecified Escherichia coli [E. coli] as the cause of diseases classified elsewhere; Z3A.28 28 weeks gestation of pregnancy
CPT/HCPCS: 36415; 76775; 76818; 80048; 81001; 81003; 85025; 87040; 87086; 96360; 96365; G0463; J0696; J7030; J7120

== ENCOUNTER 2017-05-31 22:03 | Outpatient (CLI) | payer MEDICAID ==
[~2017-05-31] VITALS: Ht 154.9 cm; Wt 75.7 kg
[~2017-05-31 22:03] MED LIST changes: +NITR-58 PO
[2017-05-31 23:39] VITALS: BP 100/63; PULSE 65; RESP 18
[2017-06-01 00:31] LABS: ADD UMIC YES; UR ASCORBIC ACID 40 mg/dL (NEGATIVE); UR BILIRUBIN (Dip) NEGATIVE (NEGATIVE); UR BLOOD (Dip) NEGATIVE (NEGATIVE); UR CLARITY CLOUDY (CLEAR); UR COLOR YELLOW (YELLOW); UR GLUCOSE (Dip) NEGATIVE (NEGATIVE); UR KETONES (Dip) TRACE mg/dL (NEGATIVE); UR LEUKOCYTE ESTERASE (Dip) 2+ Leu/ul (NEGATIVE); UR MUCUS FEW /HPF (NONE SEEN); UR NITRITE (Dip) NEGATIVE (NEGATIVE); UR RBC 1 /HPF (0-5); UR SPECIFIC GRAVITY (Dip) 1.032 (1.003-1.030); UR SQUAMOUS EPITHELIAL CELL MODERATE /HPF (FEW); UR TOTAL PROTEIN (Dip) 1+ mg/dl (NEGATIVE); UR UROBILINOGEN (Dip) NEGATIVE (NEGATIVE)
--- NOTE | 2017-06-01 01:38 | RADRPT ---
PROCEDURE: OB ultrasound for biophysical profile CLINICAL INDICATION: Contractions. TECHNIQUE: Multiple sonographic images of the gravid uterus performed. The images were reviewed on a PACS workstation. COMPARISON: 03/01/2017 FINDINGS: A single live intrauterine is identified with heart rate of 141 bpm. Fet us is in a cephalic presentation. Placenta is located posterior. Biophysical profile: breathing movement = 2/2 tone = 2/2 motion = 2/2 ELIZABETH = 2/2 ELIZABETH = 12.2 cm. IMPRESSION: 1. Single live intrauterine gestation. 2. Biophysical profile = 8/8. 3. ELIZABETH = 12.2 cm. RPTAT: HMVK .Diego Chan MD, Date Time Electronically viewed and signed by .Diego Chan MD, on 06/01/2017 01:37 .K/
--- NOTE | 2017-06-01 01:41 | RADRPT ---
PROCEDURE: US OB. CLINICAL INDICATION: Contractions. TECHNIQUE: Multiple sonographic images of the pelvis were obtained. Transabdominal imaging only w as performed. The images were reviewed on a PACS workstation. COMPARISON: 03/01/2017. FINDINGS: Single live intrauterine is identified. Cardiac activity is present with 143 beats per mi nute. There is a vertex presentation. Measurements: BPD = 36 weeks 2 days. HC = 37 weeks 4 days. AC = 39 weeks 5 days. FL = 39 weeks 2 days. Estimated gestational age of approximately 38 weeks 2 days. The estimated date of delivery is 06/12/2017. The EFW = 3623 g which is at the 67th percentile. Limited evaluation of anatomy is without gross abnormality. The placenta is posterior. IMPRESSION: Single live intrauterine gestation of approximately 38 weeks 2 days. RPTAT: HMVK .Diego Chan MD, MD Date Time Electronically viewed and signed by .Diego Chan MD, on 06/01/2017 01:41 .K/
--- NOTE | 2017-06-01 01:55 | PN ---
Triage Information Date/Time Weeks of Gestation 38 weeks : 2 Para: 1 Diabetes: none Hypertention: none Additional information Decreased movement Objective Vital Signs Date Time Temp Pulse Resp B/P Pulse Ox O2 Delivery O2 Flow Rate FiO2 05/31/17 23:39 98.8 65 18 100/63 Room Air Heart Rate: 130's Contractions: >10 Minutes Apart Results/Medications Results 24 hrs Laboratory Tests Test 05/31/17 22:30 Urine Color YELLOW Urine Clarity CLOUDY A Urine pH 5.0 Urine Specific [place] 1.032 H Urine Ketones TRACE A Urine Nitrite NEGATIVE Urine Bilirubin NEGATIVE Urine Urobilinogen NEGATIVE Urine Leukocyte Esterase 2+ H Urine Microscopic RBC 1 Urine Microscopic WBC 22 H Urine Squamous Epithelial Cells MODERATE Urine Calcium Oxalate Crystals MANY A Urine Mucus FEW A Urine Hemoglobin NEGATIVE Urine Glucose NEGATIVE Urine Total Protein 1+ H Imaging Results OB ultrasound normal BPP 06/21. ELICEO ESCALANTE MD Jun 01, 2017 01:54
--- NOTE | 2017-06-01 04:20 | TRIAGE ---
OB Triage Datetime Report Generated by CPN: 06/01/2017 04:18 Datetime: 06/01/2017 01:46 Stage of : OB Triage Datetime: 06/01/2017 01:36 Stage of : OB Triage Monitor Mode: External Pattern: Normal: <= 5 Contractions in 10 Minutes Heart Rate FHR Baseline Rate: 140 Monitor Mode: External US FHR Baseline Changes: No Baseline Change Variability: Moderate 6-25 bpm Accelerations: 15X15 Decelerations: None Datetime: 06/01/2017 00:39 Stage of : OB Triage Monitor Mode: External Quality: Moderate Pattern: Normal: <= 5 Contractions in 10 Minutes Resting Tone [place]: Relaxed Heart Rate FHR Baseline Rate: 130 Monitor Mode: External US FHR Baseline Changes: No Baseline Change Variability: Moderate 6-25 bpm Accelerations: 15X15 Decelerations: Variable Category: Category II Datetime: 05/31/2017 23:46 Monitor Mode: External US FHR Baseline Changes: No Baseline Change Variability: Moderate 6-25 bpm Accelerations: 15X15 Decelerations: Early; Variable Datetime: 05/31/2017 23:02 Vaginal Exam Dilatation (cms): 2.0 Effacement (%): 50 Station: -2 Exam By: Dr Hamilton Membrane Status: Intact Vaginal Bleeding: None Cervix, Consistency: Soft Cervix, Position: Posterior Presentation 'A': Cephalic Datetime: 05/31/2017 22:55 Stage of : OB Triage Labor Evaluation Frequency: 4-10 Monitor Mode: External Duration (sec)2399: 60-100 Quality: Moderate Pattern: Normal: <= 5 Contractions in 10 Minutes Resting Tone [place]: Relaxed Heart Rate FHR Baseline Rate: 140 Monitor Mode: External US FHR Baseline Changes: No Baseline Change Variability: Moderate 6-25 bpm Accelerations: 15X15 Decelerations: None Category: Category I Datetime: 05/31/2017 22:19 Stage of : OB Triage Maternal Assessment Level of Consciousness: Fully Conscious Headache: Generalized Blurred Vision: No Respiratory Effort: Unlabored Nausea/Vomiting: Denies RUQ Epigastric Pain: Denies Facial Edema: None Labor Evaluation Frequency: placed Monitor Mode: External Resting Tone [place]: Relaxed Monitor Mode: External US Comments: FHT 150 Pain Assessment Pain Scale: 5 Pain Presence: Intermittent Pain Type: Cramping; Pressure Pain Location: Abdomen; Perineum Datetime: 05/31/2017 22:00 Time of Arrival: 05/31/2017 21:38 EGA: 38.4 Arrived By: Wheelchair Arrived From: Home Chief Complaint: w/ c/o no FN x 2hr, mild BRADLEY, and pain and pelvic pressure with ambulation Movement: Absent Contractions: Occasional Rupture of Membranes: Denies Vaginal Bleeding: None Vaginal Discharge: Denies Recent Sexual Intercouse: Denies Abdominal Trauma: Not Applicable Patient Complaints: Headache; Other Time Provider Notified: 05/31/2017 22:00 Provider Notified: Dr Hamilton Initial Plan: EFM, SVE, UA, BPP, EFW Datetime: 03/05/2017 12:39 Labor Evaluation Frequency: 0 Monitor Mode: External Resting Tone [place]: Relaxed Heart Rate FHR Baseline Rate: 145 Monitor Mode: External US FHR Baseline Changes: No Baseline Change Variability: Moderate 6-25 bpm Accelerations: 15X15 Decelerations: None Category: Category I Datetime: 03/05/2017 12:34 Stage of : Antepartum Datetime: 03/05/2017 11:48 Stage of : Antepartum Temperature Route: Oral Pain Assessment Pain Scale: 0 Pain Presence: None/Denies Datetime: 03/05/2017 11:39 Stage of : Antepartum Datetime: 03/05/2017 11:30 Labor Evaluation Frequency: 0 Monitor Mode: External Resting Tone [place]: Relaxed Heart Rate FHR Baseline Rate: 135 Monitor Mode: External US FHR Baseline Changes: No Baseline Change Variability: Moderate 6-25 bpm Accelerations: 10X10 Category: Category I (Annotations: EGA 26 WKS) Datetime: 03/05/2017 10:30 Labor Evaluation Frequency: 0 Monitor Mode: External Resting Tone [place]: Relaxed Heart Rate FHR Baseline Rate: 145 Monitor Mode: External US FHR Baseline Changes: No Baseline Change Variability: Moderate 6-25 bpm Accelerations: 10X10 Decelerations: None Category: Category I Datetime: 03/05/2017 09:00 Labor Evaluation Frequency: 0 Monitor Mode: External Resting Tone [place]: Relaxed Monitor Mode: External US (Annotations: loss of contact ,pt eating) Datetime: 03/05/2017 08:15 Assessment Type: Ongoing Assessment Maternal Assessment Level of Consciousness: Fully Conscious DTR's/Clonus: DTRs 2+; No Clonus Headache: Denies Blurred Vision: No Respiratory Effort: Unlabored; Regular Rhythm; Equal Expansion Breath Sounds, Left: Clear and Equal Breath Sounds, Right: Clear and Equal Nausea/Vomiting: Denies RUQ Epigastric Pain: Denies Lower Extremities Edema: None Degree: None Upper Extremities Edema: None Degree: None Facial Edema: None Fall Risk Assessment History of Falling: (0) No Secondary Diagnosis: (0) No Ambulatory Aid: (0) Bedrest/Nurse Assist IV Therapy: (0) No Gait: (0) Normal/Bedrest/Immobile Mental Status: (0) Oriented to Own Ability Fall Score: 0 Fall Risk Score Definition: No Risk: No action required Datetime: 03/05/2017 08:14 Stage of : Antepartum Datetime: 03/05/2017 08:09 Stage of : Antepartum Temperature Route: Oral Monitor Mode: External Resting Tone [place]: Relaxed Heart Rate FHR Baseline Rate: 125 Monitor Mode: External US FHR Baseline Changes: No Baseline Change Variability: Moderate 6-25 bpm Accelerations: 10X10 Decelerations: None Category: Category I Datetime: 03/05/2017 07:30 Labor Evaluation Frequency: 0 Monitor Mode: External Resting Tone [place]: Relaxed Heart Rate FHR Baseline Rate: 150 Monitor Mode: External US FHR Baseline Changes: No Baseline Change Variability: Moderate 6-25 bpm Accelerations: 10X10 Decelerations: Variable (Annotations: GESTATIONAL AGE AT 26 WKS) Category: Category I Datetime: 03/05/2017 06:10 Labor Evaluation Frequency: 0 Monitor Mode: External Resting Tone [place]: Relaxed Heart Rate FHR Baseline Rate: 145 Monitor Mode: External US Variability: Moderate 6-25 bpm Accelerations: 15X15 Decelerations: Variable Pain Presence: None/Denies Pain Type: N/A Datetime: 03/05/2017 05:10 Labor Evaluation Frequency: 0 Monitor Mode: External Resting Tone [place]: Relaxed Heart Rate FHR Baseline Rate: 145 Monitor Mode: External US Variability: Moderate 6-25 bpm Accelerations: 15X15 Decelerations: None Category: Category I Datetime: 03/05/2017 04:10 Labor Evaluation Frequency: 0 Monitor Mode: External Resting Tone [place]: Relaxed Datetime: 03/05/2017 03:10 Labor Evaluation Frequency: 0 Monitor Mode: External Duration (sec)2399: denies Resting Tone [place]: Relaxed Heart Rate FHR Baseline Rate: 150 Monitor Mode: External US Variability: Moderate 6-25 bpm Accelerations: 15X15 Decelerations: None Pain Presence: None/Denies Pain Type: N/A Datetime: 03/05/2017 02:10 Labor Evaluation Frequency: 0 Monitor Mode: External Duration (sec)2399: denies Resting Tone [place]: Relaxed Heart Rate FHR Baseline Rate: 145 Monitor Mode: External US Variability: Moderate 6-25 bpm Accelerations: 15X15 Decelerations: None Pain Presence: None/Denies Pain Type: N/A Datetime: 03/05/2017 01:10 Labor Evaluation Frequency: 0 Monitor Mode: External Duration (sec)2399: denies Resting Tone [place]: Relaxed Heart Rate FHR Baseline Rate: 140 Monitor Mode: External US Variability: Moderate 6-25 bpm Accelerations: 15X15 Decelerations: None Category: Category I Pain Presence: None/Denies Pain Type: N/A Datetime: 03/05/2017 00:10 Stage of : Antepartum Temperature Route: Oral Labor Evaluation Frequency: 0 Monitor Mode: External Duration (sec)2399: denies Resting Tone [place]: Relaxed Heart Rate FHR Baseline Rate: 150 Monitor Mode: External US Variability: Moderate 6-25 bpm Accelerations: 10X10 Decelerations: None Category: Category I Pain Presence: None/Denies Pain Type: N/A Datetime: 03/04/2017 23:00 Labor Evaluation Frequency: 0 Monitor Mode: External Duration (sec)2399: denies Resting Tone [place]: Relaxed Heart Rate FHR Baseline Rate: 150 Monitor Mode: External US Variability: Moderate 6-25 bpm Decelerations: None Pain Presence: None/Denies Pain Type: N/A Datetime: 03/04/2017 22:00 Labor Evaluation Frequency: 0 Monitor Mode: External Resting Tone [place]: Relaxed Heart Rate FHR Baseline Rate: 150 Comments: loss of contact due to ga and maternal movements. Pain Presence: None/Denies Pain Type: N/A Datetime: 03/04/2017 21:00 Labor Evaluation Frequency: 0 Monitor Mode: External Duration (sec)2399: denies Resting Tone [place]: Relaxed Heart Rate FHR Baseline Rate: 150 Monitor Mode: External US Variability: Moderate 6-25 bpm Accelerations: 15X15 Decelerations: None Datetime: 03/04/2017 20:00 Labor Evaluation Frequency: x1 Monitor Mode: External Duration (sec)2399: 50 Quality: Mild Resting Tone [place]: Relaxed Heart Rate FHR Baseline Rate: 150 Monitor Mode: External US Variability: Moderate 6-25 bpm Accelerations: 15X15 Decelerations: Variable Pain Presence: None/Denies Pain Type: N/A Datetime: 03/04/2017 19:34 Stage of : Antepartum Assessment Type: Ongoing Assessment Maternal Assessment Level of Consciousness: Fully Conscious DTR's/Clonus: DTRs 2+; No Clonus Headache: Denies Blurred Vision: No Respiratory Effort: Unlabored; Regular Rhythm; Equal Expansion Breath Sounds, Left: Clear and Equal Breath Sounds, Right: Clear and Equal Nausea/Vomiting: Denies RUQ Epigastric Pain: Denies Lower Extremities Edema: None Degree: None Upper Extremities Edema: None Degree: None Facial Edema: None Temperature Route: Oral Fall Risk Assessment History of Falling: (0) No Secondary Diagnosis: (0) No Ambulatory Aid: (0) Bedrest/Nurse Assist IV Therapy: (0) No Gait: (0) Normal/Bedrest/Immobile Mental Status: (0) Oriented to Own Ability Fall Score: 0 Fall Risk Score Definition: No Risk: No action required Pain Presence: None/Denies Datetime: 03/04/2017 19:00 Labor Evaluation Frequency: X2/HR Monitor Mode: External Pattern: Normal: <= 5 Contractions in 10 Minutes Resting Tone [place]: Relaxed Heart Rate FHR Baseline Rate: 140 Monitor Mode: External US FHR Baseline Changes: No Baseline Change Variability: Moderate 6-25 bpm Accelerations: 15X15 Decelerations: None Category: Category I Datetime: 03/04/2017 16:29 Temperature Route: Oral Labor Evaluation Frequency: 0 Monitor Mode: External Pattern: Normal: <= 5 Contractions in 10 Minutes Resting Tone [place]: Relaxed Heart Rate FHR Baseline Rate: 140 Monitor Mode: External US FHR Baseline Changes: No Baseline Change Variability: Moderate 6-25 bpm Accelerations: 15X15 Decelerations: None Category: Category I Datetime: 03/04/2017 14:00 Labor Evaluation Frequency: X2/HR Monitor Mode: External Duration (sec)2399: 40 Pattern: Normal: <= 5 Contractions in 10 Minutes Resting Tone [place]: Relaxed Heart Rate FHR Baseline Rate: 140 Monitor Mode: External US FHR Baseline Changes: No Baseline Change Variability: Moderate 6-25 bpm Accelerations: 15X15 Decelerations: None Category: Category I Datetime: 03/04/2017 13:00 Labor Evaluation Frequency: X2/HR Monitor Mode: External Pattern: Normal: <= 5 Contractions in 10 Minutes Resting Tone [place]: Relaxed Heart Rate FHR Baseline Rate: 140 Monitor Mode: External US FHR Baseline Changes: No Baseline Change Variability: Moderate 6-25 bpm Accelerations: 15X15 Decelerations: None Category: Category I Datetime: 03/04/2017 12:00 Labor Evaluation Frequency: 0 Monitor Mode: External Pattern: Normal: <= 5 Contractions in 10 Minutes Resting Tone [place]: Relaxed Heart Rate FHR Baseline Rate: 140 Monitor Mode: External US FHR Baseline Changes: No Baseline Change Variability: Moderate 6-25 bpm Accelerations: 15X15 Decelerations: None Category: Category I Datetime: 03/04/2017 11:00 Labor Evaluation Frequency: X2/HR Monitor Mode: External Duration (sec)2399: 40 TO 50 Pattern: Normal: <= 5 Contractions in 10 Minutes Resting Tone [place]: Relaxed Monitor Mode: External US Comments: NOT ON MONITOR, PT MOVING TURNED MONITOR AWAY FROM FH Datetime: 03/04/2017 10:00 Labor Evaluation Frequency: X1/HR Monitor Mode: External Duration (sec)2399: 50 Pattern: Normal: <= 5 Contractions in 10 Minutes Resting Tone [place]: Relaxed Heart Rate FHR Baseline Rate: 130 Monitor Mode: External US FHR Baseline Changes: No Baseline Change Variability: Moderate 6-25 bpm Accelerations: 15X15 Decelerations: None Category: Category I Datetime: 03/04/2017 09:00 Labor Evaluation Frequency: OCCASIONAL Monitor Mode: External Duration (sec)2399: 40 TO 60 Pattern: Normal: <= 5 Contractions in 10 Minutes Resting Tone [place]: Relaxed Heart Rate FHR Baseline Rate: 130 Monitor Mode: External US FHR Baseline Changes: No Baseline Change Variability: Moderate 6-25 bpm Accelerations: 15X15 Decelerations: None Category: Category I Datetime: 03/04/2017 08:00 Maternal Assessment Level of Consciousness: Fully Conscious DTR's/Clonus: DTRs 2+; No Clonus Headache: Denies Breath Sounds, Left: Clear and Equal Breath Sounds, Right: Clear and Equal Nausea/Vomiting: Denies RUQ Epigastric Pain: Denies Temperature Route: Oral Labor Evaluation Frequency: 0 Monitor Mode: External Pattern: Normal: <= 5 Contractions in 10 Minutes Resting Tone [place]: Relaxed Heart Rate FHR Baseline Rate: 135 Monitor Mode: External US FHR Baseline Changes: No Baseline Change Variability: Moderate 6-25 bpm Accelerations: 15X15 Decelerations: None Category: Category I Datetime: 03/04/2017 07:25 Assessment Type: Ongoing Assessment Blurred Vision: No Respiratory Effort: Unlabored; Regular Rhythm; Equal Expansion Lower Extremities Edema: None Degree: None Upper Extremities Edema: None Degree: None Facial Edema: None Fall Risk Assessment History of Falling: (0) No Secondary Diagnosis: (0) No Ambulatory Aid: (0) Bedrest/Nurse Assist Gait: (0) Normal/Bedrest/Immobile Mental Status: (0) Oriented to Own Ability Datetime: 03/04/2017 06:43 Stage of : Antepartum Labor Evaluation Frequency: NONE Monitor Mode: External Pattern: Normal: <= 5 Contractions in 10 Minutes Resting Tone [place]: Relaxed Heart Rate FHR Baseline Rate: 130 Monitor Mode: External US Variability: Moderate 6-25 bpm Accelerations: 15X15 Decelerations: None Category: Category I Pain Assessment Pain Scale: 0 Pain Presence: None/Denies Pain Type: N/A Pain Relief Measures: Comfort Measures Datetime: 03/04/2017 06:06 Stage of : Antepartum Labor Evaluation Frequency: NONE Monitor Mode: External Pattern: Normal: <= 5 Contractions in 10 Minutes Resting Tone [place]: Relaxed Contraction Comments: PT DENIES Heart Rate FHR Baseline Rate: 130 Monitor Mode: External US Variability: Moderate 6-25 bpm Accelerations: 15X15 Decelerations: None Category: Category I Pain Assessment Pain Scale: 0 Pain Presence: None/Denies Pain Type: N/A Pain Relief Measures: Comfort Measures Datetime: 03/04/2017 05:02 Stage of : Antepartum Labor Evaluation Frequency: NONE Monitor Mode: External Pattern: Normal: <= 5 Contractions in 10 Minutes Resting Tone [place]: Relaxed Contraction Comments: PT DENIES Heart Rate FHR Baseline Rate: 135 Monitor Mode: External US Variability: Moderate 6-25 bpm Accelerations: Prolonged Decelerations: Variable Category: Category II Pain Assessment Pain Scale: 0 Pain Presence: None/Denies Pain Type: N/A Pain Relief Measures: Comfort Measures Datetime: 03/04/2017 04:00 Stage of : Antepartum Labor Evaluation Frequency: None Monitor Mode: External Pattern: Normal: <= 5 Contractions in 10 Minutes Resting Tone [place]: Relaxed Heart Rate FHR Baseline Rate: 135 Monitor Mode: External US Variability: Moderate 6-25 bpm Accelerations: Prolonged Decelerations: None Category: Category I Datetime: 03/04/2017 02:58 Stage of : Antepartum Labor Evaluation Frequency: NONE Monitor Mode: External Pattern: Normal: <= 5 Contractions in 10 Minutes Resting Tone [place]: Relaxed Heart Rate FHR Baseline Rate: 150 Monitor Mode: External US Variability: Moderate 6-25 bpm Accelerations: 15X15 Decelerations: None Category: Category I Pain Assessment Pain Scale: 0 Pain Presence: None/Denies Pain Type: N/A Pain Relief Measures: Comfort Measures Datetime: 03/04/2017 01:55 Stage of : Antepartum Labor Evaluation Frequency: NONE Monitor Mode: External Pattern: Normal: <= 5 Contractions in 10 Minutes Resting Tone [place]: Relaxed Heart Rate FHR Baseline Rate: 145 Monitor Mode: External US Variability: Moderate 6-25 bpm Accelerations: 15X15 Decelerations: None Category: Category I Pain Assessment Pain Scale: 0 Pain Presence: None/Denies Pain Type: N/A Pain Relief Measures: Comfort Measures Datetime: 03/04/2017 01:38 Stage of : Antepartum Datetime: 03/04/2017 01:35 Stage of : Antepartum Comments: Pt sitting up to take medication. Loss of contact due to positioning. Pain Assessment Pain Scale: 5 Pain Presence: Intermittent Pain Type: Ache Pain Location: Right Flank Pain Goal: 2 Pain Relief Measures: Pain Medication Given; Comfort Measures Datetime: 03/04/2017 01:28 Stage of : Antepartum Datetime: 03/04/2017 00:51 Stage of : Antepartum Labor Evaluation Frequency: None Monitor Mode: External Pattern: Normal: <= 5 Contractions in 10 Minutes Resting Tone [place]: Relaxed Heart Rate FHR Baseline Rate: 145 Monitor Mode: External US Variability: Moderate 6-25 bpm Accelerations: 15X15 Decelerations: None Category: Category I Pain Assessment Pain Scale: 0 Pain Presence: None/Denies Pain Type: N/A Pain Relief Measures: Comfort Measures Datetime: 03/03/2017 23:44 Stage of : Antepartum Labor Evaluation Frequency: NONE Monitor Mode: External Pattern: Normal: <= 5 Contractions in 10 Minutes Resting Tone [place]: Relaxed Heart Rate FHR Baseline Rate: 145 Monitor Mode: External US Variability: Moderate 6-25 bpm Accelerations: 15X15 Decelerations: None Category: Category I Datetime: 03/03/2017 23:00 Stage of : Antepartum Labor Evaluation Frequency: X4 Monitor Mode: External Duration (sec)2399: 50-90 Pattern: Normal: <= 5 Contractions in 10 Minutes Resting Tone [place]: Relaxed Heart Rate FHR Baseline Rate: 140 Monitor Mode: External US Variability: Moderate 6-25 bpm Accelerations: 15X15 Decelerations: None Category: Category I Datetime: 03/03/2017 22:10 Assessment Type: Ongoing Assessment Maternal Assessment Level of Consciousness: Fully Conscious DTR's/Clonus: DTRs 2+; No Clonus Headache: Denies Blurred Vision: No Respiratory Effort: Unlabored; Regular Rhythm; Equal Expansion Breath Sounds, Left: Clear and Equal Breath Sounds, Right: Clear and Equal Nausea/Vomiting: Denies RUQ Epigastric Pain: Denies Lower Extremities Edema: None Degree: None Upper Extremities Edema: None Degree: None Facial Edema: None Fall Risk Assessment History of Falling: (0) No Secondary Diagnosis: (0) No Ambulatory Aid: (0) Bedrest/Nurse Assist IV Therapy: (20) Yes Gait: (0) Normal/Bedrest/Immobile Mental Status: (0) Oriented to Own Ability Fall Score: 20 Fall Risk Score Definition: No Risk: No action required Datetime: 03/03/2017 22:01 Stage of : Antepartum Labor Evaluation Frequency: None Monitor Mode: External Pattern: Normal: <= 5 Contractions in 10 Minutes Resting Tone [place]: Relaxed Contraction Comments: pt denies feeling contractions at this time. Heart Rate FHR Baseline Rate: 145 Monitor Mode: External US Variability: Moderate 6-25 bpm Accelerations: 15X15 Decelerations: None Category: Category I Comments: Loss of FHTs due to patient positioning. Patient playing with daughter and spending time with family. Pain Assessment Pain Scale: 2 Pain Presence: Intermittent Pain Type: Ache Pain Location: Abdomen Pain Goal: 2 Pain Relief Measures: Comfort Measures Datetime: 03/03/2017 21:29 Stage of : Antepartum Datetime: 03/03/2017 21:01 Stage of : Antepartum Labor Evaluation Frequency: NONE Monitor Mode: External Pattern: Normal: <= 5 Contractions in 10 Minutes Resting Tone [place]: Relaxed Heart Rate FHR Baseline Rate: 145 Monitor Mode: External US Variability: Moderate 6-25 bpm Accelerations: 15X15 Decelerations: None Category: Category I Comments: Occasional loss of contact due to patient position. Pain Assessment Pain Scale: 2 Pain Presence: Intermittent Pain Type: Ache Pain Location: Abdomen Pain Goal: 2 Pain Relief Measures: Comfort Measures Datetime: 03/03/2017 20:04 Stage of : Antepartum Monitor Mode: External Pattern: Normal: <= 5 Contractions in 10 Minutes Resting Tone [place]: Relaxed Contraction Comments: Unable to assess due to patient positioning. Heart Rate FHR Baseline Rate: 145 Monitor Mode: External US Variability: Moderate 6-25 bpm Accelerations: 15X15 Decelerations: None Category: Category I Comments: Loss of contact due to patient's position. Pain Assessment Pain Scale: 2 Pain Presence: Intermittent Pain Type: Ache Pain Location: Abdomen Pain Goal: 2 Pain Relief Measures: Comfort Measures Datetime: 03/03/2017 19:27 Stage of : Antepartum Datetime: 03/03/2017 19:16 Stage of : Antepartum Datetime: 03/03/2017 19:11 Stage of : Antepartum Datetime: 03/03/2017 18:55 Stage of : Antepartum Labor Evaluation Frequency: NONE Monitor Mode: External Resting Tone [place]: Relaxed Heart Rate FHR Baseline Rate: 150 Monitor Mode: External US FHR Baseline Changes: No Baseline Change Variability: Moderate 6-25 bpm Accelerations: 10X10 Decelerations: None Category: Category I Pain Assessment Pain Scale: 0 Pain Presence: None/Denies Pain Goal: 3 Datetime: 03/03/2017 18:00 Stage of : Antepartum Labor Evaluation Frequency: NONE Monitor Mode: External Resting Tone [place]: Relaxed Heart Rate FHR Baseline Rate: 140 FHR Baseline Changes: No Baseline Change Variability: Moderate 6-25 bpm Accelerations: 10X10 Decelerations: None Category: Category I Pain Assessment Pain Scale: 0 Pain Presence: None/Denies Pain Goal: 3 Datetime: 03/03/2017 17:00 Stage of : Antepartum Labor Evaluation Frequency: 1 IN AN HOUR Monitor Mode: External Duration (sec)2399: 60 Quality: Mild Pattern: Normal: <= 5 Contractions in 10 Minutes Resting Tone [place]: Relaxed Heart Rate FHR Baseline Rate: 140 FHR Baseline Changes: No Baseline Change Variability: Moderate 6-25 bpm Accelerations: 10X10 Comments: UNABLE TO GET THE FULL TRACING. Pain Assessment Pain Scale: 4 Pain Presence: Constant Pain Type: Dull Pain Location: Right Flank Pain Goal: 3 Datetime: 03/03/2017 16:00 Stage of : Antepartum Labor Evaluation Frequency: NONE Monitor Mode: External Resting Tone [place]: Relaxed Heart Rate FHR Baseline Rate: 135 FHR Baseline Changes: No Baseline Change Variability: Moderate 6-25 bpm Accelerations: 10X10 Decelerations: None Category: Category I Pain Assessment Pain Scale: 0 Pain Presence: None/Denies Pain Goal: 3 Datetime: 03/03/2017 15:00 Stage of : Antepartum Labor Evaluation Frequency: 1 IN AN HOUR Monitor Mode: External Duration (sec)2399: 50 Quality: Mild Pattern: Normal: <= 5 Contractions in 10 Minutes Resting Tone [place]: Relaxed Heart Rate FHR Baseline Rate: 130 FHR Baseline Changes: No Baseline Change Variability: Moderate 6-25 bpm Accelerations: 10X10 Decelerations: None Category: Category I Pain Assessment Pain Scale: 0 Pain Presence: None/Denies Pain Goal: 3 Datetime: 03/03/2017 14:00 Stage of : Antepartum Labor Evaluation Frequency: NONE Monitor Mode: External Resting Tone [place]: Relaxed Heart Rate FHR Baseline Rate: 130 FHR Baseline Changes: No Baseline Change Variability: Moderate 6-25 bpm Accelerations: 10X10 Decelerations: None Category: Category I Pain Assessment Pain Scale: 0 Pain Presence: None/Denies Pain Goal: 3 Datetime: 03/03/2017 13:00 Stage of : Antepartum Labor Evaluation Frequency: NONE Monitor Mode: External Resting Tone [place]: Relaxed Heart Rate FHR Baseline Rate: 130 FHR Baseline Changes: No Baseline Change Variability: Moderate 6-25 bpm Accelerations: 10X10 Decelerations: None Category: Category I Pain Assessment Pain Scale: 0 Pain Presence: None/Denies Pain Goal: 3 Datetime: 03/03/2017 12:00 Stage of : Antepartum Labor Evaluation Frequency: NONE Monitor Mode: External Resting Tone [place]: Relaxed Heart Rate FHR Baseline Rate: 130 Monitor Mode: External US FHR Baseline Changes: No Baseline Change Variability: Moderate 6-25 bpm Accelerations: 10X10 Decelerations: None Category: Category I Pain Assessment Pain Scale: 0 Pain Presence: None/Denies Pain Goal: 3 Datetime: 03/03/2017 11:10 Stage of : Antepartum Datetime: 03/03/2017 11:00 Stage of : Antepartum Labor Evaluation Frequency: NONE Monitor Mode: External Resting Tone [place]: Relaxed Heart Rate FHR Baseline Rate: 130 FHR Baseline Changes: No Baseline Change Variability: Moderate 6-25 bpm Accelerations: 10X10 Decelerations: None Category: Category I Pain Assessment Pain Scale: 0 Pain Presence: None/Denies Pain Goal: 3 Datetime: 03/03/2017 10:00 Stage of : Antepartum Labor Evaluation Frequency: NONE Monitor Mode: External Resting Tone [place]: Relaxed FHR Baseline Changes: No Baseline Change Variability: Moderate 6-25 bpm Comments: UNABLLE TO MONITER THE BABY OPT IS SITTING. Pain Assessment Pain Scale: 0 Pain Presence: None/Denies Pain Goal: 3 Datetime: 03/03/2017 09:00 Stage of : Antepartum Labor Evaluation Frequency: 5 IN AN HOUR Monitor Mode: External Duration (sec)2399: 50-70 Quality: Mild Pattern: Normal: <= 5 Contractions in 10 Minutes Resting Tone [place]: Relaxed Heart Rate FHR Baseline Rate: 130 FHR Baseline Changes: No Baseline Change Variability: Moderate 6-25 bpm Accelerations: 10X10 Decelerations: Variable Category: Category II Pain Assessment Pain Scale: 0 Pain Presence: None/Denies Pain Goal: 3 Datetime: 03/03/2017 08:31 Assessment Type: Ongoing Assessment Maternal Assessment Level of Consciousness: Fully Conscious DTR's/Clonus: DTRs 2+; No Clonus Headache: Denies Blurred Vision: No Respiratory Effort: Unlabored; Regular Rhythm; Equal Expansion Breath Sounds, Left: Clear and Equal Breath Sounds, Right: Clear and Equal Nausea/Vomiting: Denies RUQ Epigastric Pain: Denies Lower Extremities Edema: None Degree: None Upper Extremities Edema: None Degree: None Facial Edema: None Fall Risk Assessment History of Falling: (0) No Secondary Diagnosis: (0) No Ambulatory Aid: (0) Bedrest/Nurse Assist IV Therapy: (0) No Gait: (0) Normal/Bedrest/Immobile Mental Status: (0) Oriented to Own Ability Fall Score: 0 Fall Risk Score Definition: No Risk: No action required Datetime: 03/03/2017 08:00 Stage of : Antepartum Labor Evaluation Frequency: 3 IN AN HOUR Monitor Mode: External Duration (sec)2399: 50-70 Quality: Mild Pattern: Normal: <= 5 Contractions in 10 Minutes Resting Tone [place]: Relaxed Heart Rate FHR Baseline Rate: 130 FHR Baseline Changes: No Baseline Change Variability: Moderate 6-25 bpm Accelerations: 10X10 Decelerations: None Category: Category I Pain Assessment Pain Scale: 0 Pain Presence: None/Denies Pain Goal: 3 Datetime: 03/03/2017 07:20 Stage of : Antepartum Datetime: 03/03/2017 07:05 Stage of : Antepartum Datetime: 03/03/2017 07:00 Labor Evaluation Frequency: NONE Monitor Mode: External Resting Tone [place]: Relaxed Heart Rate FHR Baseline Rate: 140 Monitor Mode: External US Variability: Moderate 6-25 bpm Accelerations: 15X15 Decelerations: None Category: Category I Pain Presence: None/Denies Pain Type: N/A Datetime: 03/03/2017 06:24 Stage of : Antepartum Temperature Route: Oral Datetime: 03/03/2017 06:00 Labor Evaluation Frequency: NONE Monitor Mode: External Resting Tone [place]: Relaxed Heart Rate FHR Baseline Rate: 150 Monitor Mode: External US Variability: Moderate 6-25 bpm Accelerations: 15X15 Decelerations: None Category: Category I Pain Presence: None/Denies Pain Type: N/A Datetime: 03/03/2017 05:24 Stage of : Antepartum Datetime: 03/03/2017 05:00 Labor Evaluation Frequency: NONE Monitor Mode: External Resting Tone [place]: Relaxed Heart Rate FHR Baseline Rate: 140 Monitor Mode: External US Variability: Moderate 6-25 bpm Accelerations: 15X15 Decelerations: None Category: Category I Pain Presence: None/Denies Pain Type: N/A Datetime: 03/03/2017 04:00 Labor Evaluation Frequency: NONE Monitor Mode: External Resting Tone [place]: Relaxed Heart Rate FHR Baseline Rate: 140 Monitor Mode: External US Variability: Moderate 6-25 bpm Accelerations: 15X15 Decelerations: None Category: Category I Datetime: 03/03/2017 03:19 Stage of : Antepartum Temperature Route: Oral Pain Assessment Pain Scale: 0 Pain Presence: None/Denies Pain Type: N/A Datetime: 03/03/2017 03:12 Contraction Comments: PT DENIES FRRLING UC'S Datetime: 03/03/2017 03:07 Comments: US PICKING UP MATERNAL PULSE Datetime: 03/03/2017 03:00 Labor Evaluation Frequency: NONE Monitor Mode: External Resting Tone [place]: Relaxed Heart Rate FHR Baseline Rate: 140 Monitor Mode: External US Variability: Moderate 6-25 bpm Comments: LOC DUE TO PT LYING ON HER SIDE Pain Presence: None/Denies Pain Type: N/A Datetime: 03/03/2017 02:00 Labor Evaluation Frequency: ONE Monitor Mode: External Resting Tone [place]: Relaxed Heart Rate FHR Baseline Rate: 135 Monitor Mode: External US Variability: Moderate 6-25 bpm Accelerations: 15X15 Decelerations: None Category: Category I Pain Presence: None/Denies Pain Type: N/A Datetime: 03/03/2017 01:21 Membrane Status: Intact Datetime: 03/03/2017 01:00 Heart Rate FHR Baseline Rate: 140 Variability: Moderate 6-25 bpm Comments: LOC WITH PT SLEEPING ON HER SIDE Datetime: 03/03/2017 00:10 Stage of : Antepartum Datetime: 03/03/2017 00:00 Labor Evaluation Frequency: NONE Monitor Mode: External Resting Tone [place]: Relaxed Heart Rate FHR Baseline Rate: 150 Monitor Mode: External US Variability: Moderate 6-25 bpm Accelerations: 15X15 Decelerations: None Category: Category I Pain Presence: None/Denies Pain Type: N/A Pain Assessment Comments: PT SLEEPING BUT EASILY AROUSED Datetime: 03/02/2017 23:00 Labor Evaluation Frequency: NONE Monitor Mode: External Resting Tone [place]: Relaxed Heart Rate FHR Baseline Rate: 150 Monitor Mode: External US Variability: Moderate 6-25 bpm Accelerations: 15X15 Decelerations: Variable Category: Category II Pain Presence: None/Denies Pain Type: N/A Datetime: 03/02/2017 22:00 Labor Evaluation Frequency: NONE Monitor Mode: External Resting Tone [place]: Relaxed Monitor Mode: External US FHR Baseline Changes: Tachycardia Variability: Moderate 6-25 bpm Accelerations: None Decelerations: None Category: Category II Pain Presence: None/Denies Pain Type: N/A Datetime: 03/02/2017 21:35 Stage of : Antepartum Datetime: 03/02/2017 21:20 Stage of : Antepartum Datetime: 03/02/2017 21:05 Stage of : Antepartum Datetime: 03/02/2017 21:00 Heart Rate FHR Baseline Rate: 175 Monitor Mode: External US FHR Baseline Changes: Tachycardia Variability: Moderate 6-25 bpm Accelerations: 15X15 Decelerations: Variable Category: Category II Datetime: 03/02/2017 20:20 Stage of : Antepartum Temperature Route: Oral Pain Assessment Pain Scale: 8 Pain Presence: Constant Pain Type: Sharp Pain Location: Right Flank; Left Flank (Annotations: AND RADIATING DOWN HER LEGS) Pain Goal: 2 Pain Relief Measures: Comfort Measures Pain Assessment Comments: MD NOTIFIED Datetime: 03/02/2017 20:00 Labor Evaluation Frequency: NONE Monitor Mode: External Resting Tone [place]: Relaxed Heart Rate FHR Baseline Rate: 180 FHR Baseline Changes: Tachycardia Variability: Moderate 6-25 bpm Datetime: 03/02/2017 19:25 Stage of : Antepartum Assessment Type: Ongoing Assessment Maternal Assessment Level of Consciousness: Fully Conscious DTR's/Clonus: DTRs 2+; No Clonus Headache: Denies Blurred Vision: No Respiratory Effort: Unlabored; Regular Rhythm; Equal Expansion Breath Sounds, Left: Clear and Equal Breath Sounds, Right: Clear and Equal Nausea/Vomiting: Denies RUQ Epigastric Pain: Denies Lower Extremities Edema: None Degree: None Upper Extremities Edema: None Degree: None Facial Edema: None Fall Risk Assessment History of Falling: (0) No Secondary Diagnosis: (0) No Ambulatory Aid: (0) Bedrest/Nurse Assist IV Therapy: (20) Yes Gait: (0) Normal/Bedrest/Immobile Mental Status: (0) Oriented to Own Ability Fall Score: 20 Fall Risk Score Definition: No Risk: No action required Contraction Comments: PT DENIES CRAMPING. TOCO RECONNECTED TO MONITOR. Comments: PT STATES + FM. U/S RECONNECTED TO MONITOR. Datetime: 03/02/2017 19:21 Stage of : Antepartum Datetime: 03/02/2017 19:15 Stage of : Antepartum Pain Assessment Pain Scale: 7 Pain Presence: Constant Pain Type: Sharp Pain Location: Right Flank Pain Goal: 2 Pain Relief Measures: Comfort Measures Pain Assessment Comments: PT STATES SHE HURTS VERY BAD Datetime: 03/02/2017 16:59 Stage of : Antepartum Labor Evaluation Frequency: 0 Monitor Mode: External Heart Rate FHR Baseline Rate: 135 Monitor Mode: External US Variability: Moderate 6-25 bpm Accelerations: 15X15 Decelerations: None Comments: APPROPRIATE FOR [place] Pain Assessment Pain Scale: 0 Pain Goal: 2 Datetime: 03/02/2017 16:00 Stage of : Antepartum Temperature Route: Oral Labor Evaluation Frequency: 0 Monitor Mode: External Heart Rate FHR Baseline Rate: 135 Monitor Mode: External US Variability: Moderate 6-25 bpm Accelerations: 15X15 Decelerations: None Category: Category I Comments: LOSS OF CONTACT Pain Assessment Pain Scale: 0 Pain Goal: 2 Datetime: 03/02/2017 15:00 Stage of : Antepartum Labor Evaluation Frequency: 0 Monitor Mode: External Heart Rate FHR Baseline Rate: 135 Monitor Mode: External US Variability: Marked >25 bpm Accelerations: 15X15 Decelerations: Variable Comments: APPROPRIATE FOR [place] Pain Assessment Pain Scale: 0 Pain Goal: 2 Datetime: 03/02/2017 14:04 Stage of : Antepartum Temperature Route: Oral Labor Evaluation Frequency: 0 Monitor Mode: External Contraction Comments: TOCO APPLIED AFTER SHOWER (Annotations: PT DENIES CRAMPING) Heart Rate FHR Baseline Rate: 150 Monitor Mode: External US Comments: U/S APPLIED AFTER SHOWER Pain Assessment Pain Scale: 0 Pain Goal: 2 Datetime: 03/02/2017 13:10 Stage of : Antepartum Datetime: 03/02/2017 13:03 Stage of : Antepartum Monitor Mode: External Monitor Mode: External US Comments: EFM BACK ON X2 Datetime: 03/02/2017 12:54 Stage of : Antepartum Labor Evaluation Frequency: none Monitor Mode: External Resting Tone [place]: Relaxed Heart Rate FHR Baseline Rate: 140 Monitor Mode: External US FHR Baseline Changes: No Baseline Change Variability: Moderate 6-25 bpm Accelerations: 10X10 Decelerations: Variable Comments: LOSS OF CONTACT PT SITTING UP IN CHAIR TO EAT Pain Assessment Pain Scale: 2 Pain Presence: Constant Pain Location: Right Flank Pain Goal: 2 Datetime: 03/02/2017 11:44 Stage of : Antepartum Labor Evaluation Frequency: none Monitor Mode: External Resting Tone [place]: Relaxed Heart Rate FHR Baseline Rate: 140 Monitor Mode: External US FHR Baseline Changes: No Baseline Change Variability: Moderate 6-25 bpm Accelerations: 10X10 Decelerations: Variable Pain Assessment Pain Scale: 4 Pain Presence: Intermittent Pain Type: Ache Pain Location: Right Flank Pain Goal: 4 Pain Relief Measures: Pain Medication Given Datetime: 03/02/2017 10:45 Assessment Type: Ongoing Assessment Maternal Assessment Level of Consciousness: Fully Conscious DTR's/Clonus: DTRs 2+; No Clonus Headache: Frontal Blurred Vision: No Respiratory Effort: Unlabored; Regular Rhythm; Equal Expansion Breath Sounds, Left: Clear and Equal Breath Sounds, Right: Clear and Equal Nausea/Vomiting: Denies RUQ Epigastric Pain: Denies Lower Extremities Edema: None Degree: None Upper Extremities Edema: None Degree: None Facial Edema: None Fall Risk Assessment History of Falling: (0) No Secondary Diagnosis: (0) No Ambulatory Aid: (0) Bedrest/Nurse Assist IV Therapy: (20) Yes Gait: (0) Normal/Bedrest/Immobile Mental Status: (0) Oriented to Own Ability Fall Score: 20 Fall Risk Score Definition: No Risk: No action required Datetime: 03/02/2017 10:10 Stage of : Antepartum Labor Evaluation Frequency: none Monitor Mode: External Resting Tone [place]: Relaxed Heart Rate FHR Baseline Rate: 140 Monitor Mode: External US FHR Baseline Changes: No Baseline Change Variability: Moderate 6-25 bpm Accelerations: 10X10 Decelerations: Variable Comments: APROPRIATE FOR GA 25 .6 WEEKS Pain Assessment Pain Scale: 4 Pain Presence: Intermittent Pain Type: Ache Pain Location: Right Flank Pain Goal: 3 Pain Relief Measures: Comfort Measures (Annotations: LEFT LATERAL POSITION) Datetime: 03/02/2017 09:34 Stage of : Antepartum Datetime: 03/02/2017 09:00 Stage of : Antepartum Temperature Route: Oral Labor Evaluation Frequency: none Monitor Mode: External Resting Tone [place]: Relaxed Heart Rate FHR Baseline Rate: 140 Monitor Mode: External US FHR Baseline Changes: No Baseline Change Variability: Moderate 6-25 bpm Accelerations: 10X10 Decelerations: Variable Comments: APPROP FOR [place] Pain Assessment Pain Scale: 3 Pain Presence: Intermittent Pain Type: Ache Pain Location: Right Flank Pain Goal: 3 Datetime: 03/02/2017 08:00 Stage of : Antepartum Labor Evaluation Frequency: none Monitor Mode: External Resting Tone [place]: Relaxed Heart Rate FHR Baseline Rate: 140 Monitor Mode: External US FHR Baseline Changes: No Baseline Change Variability: Moderate 6-25 bpm Accelerations: 10X10 Decelerations: Variable Comments: APPROPRIATE FOR GA 25 WEEKS Datetime: 03/02/2017 07:00 Labor Evaluation Frequency: none Monitor Mode: External Resting Tone [place]: Relaxed Heart Rate FHR Baseline Rate: 155 Monitor Mode: External US FHR Baseline Changes: No Baseline Change Variability: Moderate 6-25 bpm Accelerations: 10X10 Decelerations: Variable Category: Category II Datetime: 03/02/2017 06:00 Labor Evaluation Frequency: none Monitor Mode: External Resting Tone [place]: Relaxed Heart Rate FHR Baseline Rate: 160 Monitor Mode: External US FHR Baseline Changes: No Baseline Change Variability: Moderate 6-25 bpm Accelerations: 10X10 Decelerations: None Datetime: 03/02/2017 05:57 Stage of : Antepartum Temperature Route: Oral Datetime: 03/02/2017 05:00 Labor Evaluation Frequency: none Monitor Mode: External Resting Tone [place]: Relaxed Heart Rate FHR Baseline Rate: 170 Monitor Mode: External US FHR Baseline Changes: Tachycardia Variability: Moderate 6-25 bpm Decelerations: Variable Datetime: 03/02/2017 04:00 Labor Evaluation Frequency: x3 Monitor Mode: External Duration (sec)2399: 40-60 Quality: Mild Resting Tone [place]: Relaxed Contraction Comments: pt sleeping without apparent distress Heart Rate FHR Baseline Rate: 170 Monitor Mode: External US FHR Baseline Changes: Tachycardia Variability: Moderate 6-25 bpm Datetime: 03/02/2017 03:00 Labor Evaluation Frequency: x3 Monitor Mode: External Duration (sec)2399: 40-60 Quality: Mild Resting Tone [place]: Relaxed Contraction Comments: pt without complaint of uc pain. Heart Rate FHR Baseline Rate: 170 Monitor Mode: External US FHR Baseline Changes: Tachycardia Variability: Moderate 6-25 bpm Accelerations: 10X10 Decelerations: None Datetime: 03/02/2017 02:35 Stage of : Antepartum Temperature Route: Oral Datetime: 03/02/2017 02:00 Labor Evaluation Frequency: x4 Monitor Mode: External Duration (sec)2399: 40-50 Quality: Mild Resting Tone [place]: Relaxed Contraction Comments: pt without complaint of uc pain. Heart Rate FHR Baseline Rate: 160 Monitor Mode: External US FHR Baseline Changes: No Baseline Change Variability: Moderate 6-25 bpm Accelerations: 10X10 Decelerations: Variable Datetime: 03/02/2017 01:29 Stage of : Antepartum Temperature Route: Oral Datetime: 03/02/2017 01:00 Labor Evaluation Frequency: x5 Monitor Mode: External Duration (sec)2399: 50-70 Quality: Mild Resting Tone [place]: Relaxed Contraction Comments: pt sleeping without apparent distress Heart Rate FHR Baseline Rate: 150 Monitor Mode: External US FHR Baseline Changes: No Baseline Change Variability: Moderate 6-25 bpm Accelerations: 10X10 Decelerations: None Datetime: 03/02/2017 00:12 Stage of : Antepartum Temperature Route: Oral Datetime: 03/02/2017 00:00 Labor Evaluation Frequency: x2 Monitor Mode: External Duration (sec)2399: 40-60 Quality: Mild Resting Tone [place]: Relaxed Contraction Comments: pt without complaint of uc pain Heart Rate FHR Baseline Rate: 150 Monitor Mode: External US FHR Baseline Changes: No Baseline Change Variability: Moderate 6-25 bpm Accelerations: 15X15 Decelerations: Variable Datetime: 03/01/2017 23:00 Labor Evaluation Frequency: x5 Monitor Mode: External Duration (sec)2399: 50 Quality: Mild Resting Tone [place]: Relaxed Contraction Comments: pt without complaint of uc pain Heart Rate FHR Baseline Rate: 150 Monitor Mode: External US FHR Baseline Changes: No Baseline Change Variability: Moderate 6-25 bpm Accelerations: 10X10 Decelerations: None Datetime: 03/01/2017 22:00 Labor Evaluation Frequency: none Monitor Mode: External Resting Tone [place]: Relaxed Heart Rate FHR Baseline Rate: 160 Monitor Mode: External US FHR Baseline Changes: No Baseline Change Variability: Moderate 6-25 bpm Accelerations: 15X15 Decelerations: Variable Datetime: 03/01/2017 21:42 Assessment Type: Ongoing Assessment Maternal Assessment Level of Consciousness: Fully Conscious DTR's/Clonus: DTRs 2+; No Clonus Headache: Frontal (Annotations: pt states may be due to hunger. Pt given meal.) Blurred Vision: No Respiratory Effort: Unlabored; Regular Rhythm; Equal Expansion Breath Sounds, Left: Clear and Equal Breath Sounds, Right: Clear and Equal Nausea/Vomiting: Denies RUQ Epigastric Pain: Denies Lower Extremities Edema: None Degree: None Upper Extremities Edema: None Degree: None Facial Edema: None Fall Risk Assessment History of Falling: (0) No Secondary Diagnosis: (0) No Ambulatory Aid: (0) Bedrest/Nurse Assist IV Therapy: (20) Yes Gait: (0) Normal/Bedrest/Immobile Mental Status: (0) Oriented to Own Ability Fall Score: 20 Fall Risk Score Definition: No Risk: No action required Datetime: 03/01/2017 21:38 Stage of : Antepartum Temperature Route: Oral Datetime: 03/01/2017 19:35 EGA: 25.4 Datetime: 03/01/2017 19:13 Fall Score: 0 Fall Risk Score Definition: No Risk: No action required Datetime: 01/29/2017 20:39 Fall Score: 20 Fall Risk Score Definition: No Risk: No action required Datetime: 01/29/2017 11:56 Fall Score: 20 Fall Risk Score Definition: No Risk: No action required Datetime: 01/29/2017 04:47 Fall Score: 0 Fall Risk Score Definition: No Risk: No action required Datetime: 01/29/2017 04:46 EGA: 21.1 Datetime: 01/14/2017 08:43 Fall Score: 0 Fall Risk Score Definition: No Risk: No action required Datetime: 01/14/2017 08:41 EGA: 19.0
== END 2017-06-01 01:57 | disposition home or self-care (01) ==
LOC: OBT 22:03 → L-D 22:05 → OBT 06-01 01:57
PROVIDERS: ATTEND Obstetrics & Gynecology
DX: O36.8130 Decreased fetal movements, third trimester, not applicable or unspecified (principal); Z3A.38 38 weeks gestation of pregnancy
CPT/HCPCS: 76815; 76818; 81001; Z7500; G0463

== ENCOUNTER 2017-06-05 18:39 | Inpatient (IN) | payer MEDICAID ==
[~2017-06-05] VITALS: Ht 154.9 cm; Wt 75.7 kg
[~2017-06-05 18:39] MED LIST changes: -NITR-58 PO
[2017-06-05 18:53] VITALS: BP 110/70; PULSE 80; RESP 18
--- NOTE | 2017-06-05 20:56 | RADRPT ---
PROCEDURE: US OB. CLINICAL INDICATION: Size and dates TECHNIQUE: Multiple sonographic images of the pelvis and gravid uterus were obtained. The images were reviewed on a PACS workstation. COMPARISON: 05/31/17 FINDINGS: There is a single viable intrauterine gestation. Cardiac activity is present with 163 beats per min bernabe. There is a vertex presentation. The placenta is posterior. There is no evidence for an abruption or placenta previa. There is a normal amount of amniotic fluid with an ELIZABETH = 9.2 cm. Measurements were made in order to determine age. The results are as follows: BPD =9.7 cm HC =34.3 cm AC =35.8 cm FL =7.8 cm Estimated gestational age of approximately 39 weeks and 5 days based on ultrasound measurements. Clinical age: 39 weeks and 5 days. The estimated date of delivery is 06/07/17, based on ultrasound measurements. The EFW = 3868 g, 74.6%, based on LMP age. RPTAT: AA IMPRESSION: Single viable intrauterine gestation of approximately 39 weeks and 5 days based on ultrasound measu rements. .Estrada Lao MD, Date Time Electronically viewed and signed by .Estrada Lao MD, on 06/05/2017 20:55 .S/
[2017-06-05] MEDS ORDERED: OXYTOCIN 30 UNITS/LR 500 ML IV PRN (22:00)
[2017-06-05] MEDS ORDERED: ACETAMINOPHEN/CODEINE #3 TAB PO PRN (22:00)
[2017-06-05] MEDS ORDERED: MISOPROSTOL 200 MCG TAB PR PRN (22:00)
[2017-06-05] MEDS ORDERED: CARBOPROST 250 MCG INJ IM PRN (22:00)
[2017-06-05] MEDS ORDERED: LACTATED RINGER'S 1,000 ML IV PRN (22:00)
[2017-06-05] MEDS ORDERED: LIDOCAINE 1% (MPF) 30 ML INJ INJ PRN (22:00)
[2017-06-05] MEDS ORDERED: METHYLERGONOVINE 0.2 MG INJ IM PRN (22:00)
[2017-06-05] MEDS ORDERED: BUTORPHANOL 2 MG INJ IV PRN ×2 (22:00)
[2017-06-05] MEDS ORDERED: IBUPROFEN 600 MG TAB PO PRN (22:00)
[2017-06-05] MEDS ORDERED: OXYTOCIN 30 UNITS/LR 500 ML IV SCH ×2 (22:00)
--- NOTE | 2017-06-05 22:59 | TRIAGE ---
OB Triage Datetime Report Generated by CPN: 06/05/2017 22:58 Datetime: 06/05/2017 19:19 Stage of : OB Triage Maternal Assessment Level of Consciousness: Fully Conscious DTR's/Clonus: DTRs 2+ Headache: Denies Blurred Vision: No Respiratory Effort: Unlabored Breath Sounds, Left: Clear and Equal Breath Sounds, Right: Clear and Equal Nausea/Vomiting: Denies RUQ Epigastric Pain: Denies Facial Edema: None Labor Evaluation Frequency: 5-7 Monitor Mode: External Duration (sec)2399: 55-60 Quality: Moderate Pattern: Normal: <= 5 Contractions in 10 Minutes Resting Tone [place]: Relaxed Heart Rate FHR Baseline Rate: 145 Monitor Mode: External US FHR Baseline Changes: No Baseline Change Variability: Moderate 6-25 bpm Accelerations: 15X15 Decelerations: None Category: Category I Pain Assessment Pain Scale: 2 Pain Presence: Intermittent Pain Type: Dull; Ache Pain Location: Back Pain Relief Measures: Comfort Measures Membrane Status: Intact Datetime: 06/05/2017 19:18 Labor Evaluation Frequency: 5-7 Monitor Mode: External Duration (sec)2399: 60-100 Quality: Mild Pattern: Normal: <= 5 Contractions in 10 Minutes Resting Tone [place]: Relaxed Heart Rate FHR Baseline Rate: 145 FHR Baseline Changes: No Baseline Change Variability: Moderate 6-25 bpm Accelerations: 15X15 Decelerations: Late Category: Category I Datetime: 06/05/2017 19:02 Vaginal Exam Dilatation (cms): 3.0 Effacement (%): 60 Station: -2 Exam By: [email or web address] Vaginal Bleeding: Normal Show Cervix, Consistency: Soft Cervix, Position: Posterior Presentation 'A': Cephalic Datetime: 06/05/2017 18:57 Time of Arrival: 06/05/2017 18:33 EGA: 39.5 Arrived By: Wheelchair Arrived From: Home Chief Complaint: PAIN FROM 1500, LEAKING FROM 0600; BLOOD WHEN SHE WIPES POST URINATING Movement: Decreased Contractions: Occasional Time Contractions Began: 06/05/2017 15:00 Rupture of Membranes: Unsure Vaginal Bleeding: Normal Show Vaginal Discharge: Present Recent Sexual Intercouse: Denies Abdominal Trauma: Not Applicable Patient Complaints: Contractions; Cramping Time Provider Notified: 06/05/2017 21:34 Provider Notified: DR ESCALANTE Initial Plan: EFM x2, SVE Datetime: 06/05/2017 18:50 Stage of : OB Triage Assessment Type: Triage Maternal Assessment Level of Consciousness: Fully Conscious Headache: Denies Blurred Vision: No Respiratory Effort: Unlabored; Regular Rhythm; Equal Expansion Breath Sounds, Left: Clear and Equal Breath Sounds, Right: Clear and Equal Nausea/Vomiting: Denies RUQ Epigastric Pain: Denies Lower Extremities Edema: None Degree: None Upper Extremities Edema: None Degree: None Facial Edema: None Temperature Route: Oral Fall Risk Assessment History of Falling: (0) No Secondary Diagnosis: (0) No Ambulatory Aid: (0) Bedrest/Nurse Assist IV Therapy: (0) No Gait: (0) Normal/Bedrest/Immobile Mental Status: (0) Oriented to Own Ability Fall Score: 0 Fall Risk Score Definition: No Risk: No action required Pain Assessment Pain Scale: 1 Pain Presence: Intermittent Pain Type: Cramping; Sharp; Contraction Pain Location: Abdomen; Back (Annotations: RADIATES FROM BACK TO FRONT) Datetime: 05/31/2017 22:00 EGA: 39.0 Datetime: 03/05/2017 08:15 Fall Score: 0 Fall Risk Score Definition: No Risk: No action required Datetime: 03/04/2017 19:34 Fall Score: 0 Fall Risk Score Definition: No Risk: No action required Datetime: 03/03/2017 22:10 Fall Score: 20 Fall Risk Score Definition: No Risk: No action required Datetime: 03/03/2017 08:31 Fall Score: 0 Fall Risk Score Definition: No Risk: No action required Datetime: 03/02/2017 19:25 Fall Score: 20 Fall Risk Score Definition: No Risk: No action required Datetime: 03/02/2017 10:45 Fall Score: 20 Fall Risk Score Definition: No Risk: No action required Datetime: 03/01/2017 21:42 Fall Score: 20 Fall Risk Score Definition: No Risk: No action required Datetime: 03/01/2017 19:35 EGA: 26.0 Datetime: 03/01/2017 19:13 Fall Score: 0 Fall Risk Score Definition: No Risk: No action required Datetime: 01/29/2017 20:39 Fall Score: 20 Fall Risk Score Definition: No Risk: No action required Datetime: 01/29/2017 11:56 Fall Score: 20 Fall Risk Score Definition: No Risk: No action required Datetime: 01/29/2017 04:47 Fall Score: 0 Fall Risk Score Definition: No Risk: No action required Datetime: 01/29/2017 04:46 EGA: 21.4 Datetime: 01/14/2017 08:43 Fall Score: 0 Fall Risk Score Definition: No Risk: No action required Datetime: 01/14/2017 08:41 EGA: 19.3
[2017-06-06 00:15] LABS: BASOPHILS % 0.5 % (0.0-2.0); EOSINOPHILS # 0.2 10^3/ul (0.0-0.5); EOSINOPHILS % 2.4 % (0.0-7.0); HEMATOCRIT 35.5 % (37.0-47.0); HEMOGLOBIN 11.3 g/dl (12.0-16.0); LYMPHOCYTES # 2.2 10^3/ul (0.8-2.9); LYMPHOCYTES % 29.1 % (18.0-55.0); MEAN CORPUSCULAR HEMOGLOBIN 25.8 pg (29.0-33.0); MEAN CORPUSCULAR HGB CONC 31.8 g/dl (32.0-37.0); MEAN CORPUSCULAR VOLUME 81.1 fl (72.0-104.0); MEAN PLATELET VOLUME 10.9 fl (7.4-10.4); MONOCYTE # 0.6 10^3/ul (0.3-0.9); MONOCYTES % 7.5 % (0.0-13.0); NEUTROPHIL # 4.6 10^3/ul (1.6-7.5); NEUTROPHILS % 60.2 % (30.0-74.0); PLATELET COUNT 222 10^3/UL (140-415); RED BLOOD COUNT 4.38 10^6/ul (4.20-5.40); RED CELL DISTRIBUTION WIDTH 17.2 % (11.5-14.5); WHITE BLOOD COUNT 7.6 10^3/ul (4.8-10.8)
[2017-06-06 00:18] LABS: ADD UMIC YES; UR ASCORBIC ACID NEGATIVE (NEGATIVE); UR BACTERIA FEW /HPF (NONE SEEN); UR BILIRUBIN (Dip) NEGATIVE (NEGATIVE); UR BLOOD (Dip) NEGATIVE (NEGATIVE); UR CLARITY SLIGHTLY CLOUDY (CLEAR); UR COLOR YELLOW (YELLOW); UR GLUCOSE (Dip) NEGATIVE (NEGATIVE); UR KETONES (Dip) NEGATIVE (NEGATIVE); UR LEUKOCYTE ESTERASE (Dip) TRACE Leu/ul (NEGATIVE); UR NITRITE (Dip) NEGATIVE (NEGATIVE); UR RBC 1 /HPF (0-5); UR SPECIFIC GRAVITY (Dip) 1.024 (1.003-1.030); UR SQUAMOUS EPITHELIAL CELL FEW /HPF (FEW); UR TOTAL PROTEIN (Dip) NEGATIVE (NEGATIVE); UR UROBILINOGEN (Dip) 1+ mg/dL (NEGATIVE)
[2017-06-06] MEDS: LACTATED RINGER'S 1,000 ML IV SCH ×3 (00:35→17:09)
[2017-06-06 00:58] LABS: INR 1.01; PROTIME 13.3 Sec (12.2-14.2)
[2017-06-06 00:59] LABS: PARTIAL THROMBOPLASTIN TIME 27.7 Sec (25.0-35.0)
[2017-06-06] MEDS ORDERED: MINERAL OIL 30ML CUP PO ONE (08:00)
[2017-06-06] MEDS ORDERED: MINERAL OIL LIGHT 10 ML VIAL TOP ONE (08:30)
[2017-06-06] MEDS ORDERED: OXYTOCIN 30 UNITS/LR 500 ML IV SCH (11:00)
[2017-06-06] MEDS ORDERED: NALOXONE (0.4 MG/ML) INJ IV PRN (12:00)
[2017-06-06] MEDS ORDERED: ONDANSETRON 4 MG INJ IV PRN (12:00)
[2017-06-06] MEDS ORDERED: DIPHENHYDRAMINE 50 MG INJ IV PRN (12:00)
[2017-06-06] MEDS ORDERED: FENTAnyl 2MCG/ML-ROPIV 0.2% 100 ML BAG EPI SCH (12:00)
[2017-06-06] MEDS ORDERED: EPHEDrine SULFATE 50 MG/5 ML SYG IV PRN (12:00)
--- NOTE | 2017-06-06 18:29 | HP ---
Date/Time of Note Date/Time of Note DATE: 06/06/17 TIME: 18:27 OB - History Hx of Present Chief Complaint: contractions Estimated Due Date: Jun 08, 2017 : 2 Para: 1 Spontaneous : 0 Therapeutic : 0 Care: Good Care Ultrasounds: Normal mid trimester US Obstetrical Complications: None Medical Complications: None Past Family/Social History * Past Medical, Surgical, Family and Obstetric Histories reviewed from chart. GBS Status: Negative OB Admission Exam Vital Signs Vital Signs Vital Signs Date Time Temp Pulse Resp B/P Pulse Ox O2 Delivery O2 Flow Rate FiO2 06/05/17 18:53 98.1 80 18 110/70 99 Room Air Physical Exam HEENT: WNL Heart: Rhythm Normal Lungs: Clear, Equal Abdomen: WNL Extremities: Normal Reflexes: Normal Cervical Dilatation: 4cm Effacement: 50% Station: -1 Membranes: Intact Heart Rate: 120's Accelerations: Accelerations Present Decelerations: No Decelerations Varibility: Moderate Last 72 hours Lab Results CBC & BMP 06/06/17 00:01 OB Assessment/Plan Reason for admission: active labor Plan: Expectant Management ELICEO ESCALANTE MD Jun 06, 2017 18:29
--- NOTE | 2017-06-06 19:00 | LDN ---
Date/Time of Note Date/Time of Note DATE: 06/06/17 TIME: 18:58 Delivery Summary Weeks of Gestation 39 weeks and 5 days Placenta Delivered: Spontaneously Meconium: none Episiotomy: No Perineal laceration: 0 Anesthesia type: Epidural Estimated blood loss: 200 Sponge & Needle done & correct: Yes All needle counts correct: Yes Any foreign bodies felt in the: No Problems: Infant Delivery Information Sex Infant Sex: male Apgars 1 Minute: 9 5 Minute: 9 Suctioning Nose & mouth suctioned at aug[place]: Yes Delee suction performed: No Umbilical Cord Umbilical cord with: 3 Vessels Cord presentations: no nuchal cord Cord Blood was obtained: Yes Mother & Baby Disposition Disposition Mom & Baby to Maternity; Good: Yes ELICEO ESCALANTE MD Jun 06, 2017 19:00
[2017-06-06 21:20] VITALS: BP 113/72; PULSE 68; RESP 18
[2017-06-07 00:05] VITALS: BP 115/76; PULSE 72; RESP 18
[2017-06-07] MEDS ORDERED: LANOLIN 7 GM TUBE TOP PRN ×2 (01:00→02:30)
[2017-06-07] MEDS: IBUPROFEN 600 MG TAB PO SCH ×5 (01:00→18:15)
[2017-06-07] MEDS ORDERED: ACETAMINOPHEN/CODEINE #3 TAB PO PRN ×2 (01:00→02:30)
[2017-06-07] MEDS ORDERED: OXYTOCIN 30 UNITS/LR 500 ML IV SCH (01:00)
[2017-06-07] MEDS ORDERED: BENZOCAINE 20% 56 ML SPRAY TOP PRN ×2 (01:00→02:30)
[2017-06-07] MEDS ORDERED: WITCH HAZEL/GLYCERIN PAD PR PRN ×2 (01:00→02:30)
[2017-06-07] MEDS ORDERED: LACTATED RINGER'S 1,000 ML IV* SCH (02:15)
[2017-06-07] MEDS ORDERED: METHYLERGONOVINE 0.2 MG INJ IM PRN (02:30)
[2017-06-07] MEDS ORDERED: DIBUCAINE 1% 30 GM OINT PR PRN (02:30)
[2017-06-07] MEDS ORDERED: ACETAMINOPHEN 325 MG TAB PO PRN (02:30)
[2017-06-07] MEDS ORDERED: OXYTOCIN 30 UNITS/LR 500 ML IV PRN (02:30)
[2017-06-07] MEDS ORDERED: MISOPROSTOL 200 MCG TAB PR PRN (02:30)
[2017-06-07] MEDS ORDERED: CARBOPROST 250 MCG INJ IM PRN (02:30)
[2017-06-07 04:30] VITALS: BP 102/68; PULSE 60; RESP 18
[2017-06-07 07:50] VITALS: BP 89/63; PULSE 61; RESP 16
[2017-06-07] MEDS: PRENATAL VITAMIN PO SCH (08:51)
[2017-06-07] MEDS: SENNA/DOCUSATE NA (8.6MG/50MG) TAB PO SCH ×2 (08:51→20:54)
[2017-06-07 10:35] LABS: BASOPHILS % 0.2 % (0.0-2.0); EOSINOPHILS # 0.2 10^3/ul (0.0-0.5); EOSINOPHILS % 1.9 % (0.0-7.0); HEMATOCRIT 32.1 % (37.0-47.0); HEMOGLOBIN 10.4 g/dl (12.0-16.0); LYMPHOCYTES # 1.9 10^3/ul (0.8-2.9); LYMPHOCYTES % 22.9 % (18.0-55.0); MEAN CORPUSCULAR HEMOGLOBIN 26.4 pg (29.0-33.0); MEAN CORPUSCULAR HGB CONC 32.4 g/dl (32.0-37.0); MEAN CORPUSCULAR VOLUME 81.5 fl (72.0-104.0); MEAN PLATELET VOLUME 11.2 fl (7.4-10.4); MONOCYTE # 0.5 10^3/ul (0.3-0.9); MONOCYTES % 6.1 % (0.0-13.0); NEUTROPHIL # 5.8 10^3/ul (1.6-7.5); NEUTROPHILS % 68.5 % (30.0-74.0); PLATELET COUNT 186 10^3/UL (140-415); RED BLOOD COUNT 3.94 10^6/ul (4.20-5.40); RED CELL DISTRIBUTION WIDTH 16.9 % (11.5-14.5); WHITE BLOOD COUNT 8.5 10^3/ul (4.8-10.8)
--- NOTE | 2017-06-07 12:36 | DS ---
Date/Time of Note Date/Time of Note DATE: 06/07/17 TIME: 12:36 Obstetrical Discharge Record Final Diagnosis Final Diagnosis: Term delivered Complications Augmentation: Yes Condition on Discharge Physical Assessment Voiding: Yes Bowel Movement: Yes Breast: Soft, non-tender Fundus: Firm Calf Tenderness: No Patient Condition: Stable ELICEO ESCALANTE MD Jun 07, 2017 12:36
[2017-06-07 16:00] VITALS: BP 98/62; PULSE 62; RESP 16
[2017-06-07 20:00] VITALS: BP 115/61; PULSE 75; RESP 20
[2017-06-08] MEDS: IBUPROFEN 600 MG TAB PO SCH ×3 (00:59→11:27)
[2017-06-08 04:00] VITALS: BP 93/60; PULSE 52; RESP 18
[2017-06-08 08:26] VITALS: BP 104/71; PULSE 75; RESP 19
[2017-06-08] MEDS: SENNA/DOCUSATE NA (8.6MG/50MG) TAB PO SCH (08:33)
[2017-06-08] MEDS: PRENATAL VITAMIN PO SCH (08:33)
[2017-06-08] MEDS ORDERED: DIPHTH/TET/ACEL PERTUSS (ADULT) 0.5 ML VIAL IM* ONE (09:00)
== END 2017-06-08 17:59 | disposition home or self-care (01) | DRG 775 ==
LOC: OBT 18:39 → L-D 18:42 → OBT 21:35 → L-D 21:35 → PP1 06-07 01:03
PROVIDERS: ADMIT Obstetrics & Gynecology; ATTEND Obstetrics & Gynecology
PROC: 10E0XZZ Delivery of Products of Conception, External Approach (ICD-10-PCS; principal; 2017-06-06)
PROC: 3E033VJ Introduction of Other Hormone into Peripheral Vein, Percutaneous Approach (ICD-10-PCS; 2017-06-06)
PROC: 3E00X4Z Introduction of Serum, Toxoid and Vaccine into Skin and Mucous Membranes, External Approach (ICD-10-PCS; 2017-06-08)
DX: O80 Encounter for full-term uncomplicated delivery (principal); Z23 Encounter for immunization; Z3A.39 39 weeks gestation of pregnancy; Z37.0 Single live birth
CPT/HCPCS: 62319; 76815; 81001; 85025; 85610; 85730; 86592; 86900; 86901; 87340; 90715; G0463; J2590; J3010; J7120

== ENCOUNTER 2017-11-29 19:07 | Emergency (ER) | END 2017-11-29 20:19 | disposition home or self-care (01) ==